=== PATIENT | male | born 1945 | race Caucasian/White ===

== ENCOUNTER → 2017-01-23 | Outpatient (CLI) | payer MEDICARE ==
[~2017-01-23] MED LIST: ALPR1TAB10 PO; AMLO10TA2 PO; ASPI-496 PO; BENA40TA2 PO; DOXY100C2 PO; GADOBUTROL 10 MMOL/10 ML PFS ONE; HYDR25TA6 PO; METO50TA4 PO; PRED20TA PO; SIMV40TA3 PO
== END | disposition home or self-care (01) ==
LOC: CFH 07:52
PROVIDERS: ATTEND Internal Medicine Hematology & Oncology
DX: C34.10 Malignant neoplasm of upper lobe, unspecified bronchus or lung (principal); G31.9 Degenerative disease of nervous system, unspecified
CPT/HCPCS: 70553; A9585

== ENCOUNTER → 2017-01-24 | Outpatient (CLI) | payer MEDICARE ==
[~2017-01-24] MED LIST changes: -GADOBUTROL 10 MMOL/10 ML PFS ONE
== END | disposition home or self-care (01) ==
LOC: PETCFH 12:27
PROVIDERS: ATTEND Internal Medicine Hematology & Oncology
DX: C34.11 Malignant neoplasm of upper lobe, right bronchus or lung (principal); C77.1 Secondary and unspecified malignant neoplasm of intrathoracic lymph nodes
CPT/HCPCS: 78815; A9552

== ENCOUNTER 2017-02-06 08:30 | Day surgery (SDC) | payer MEDICARE ==
[~2017-02-06] VITALS: Ht 185.4 cm; Wt 86.0 kg
[2017-02-06 09:35] VITALS: BP 115/69
[2017-02-06] MEDS ORDERED: LIDOCAINE 1%, 20ML ONE (09:47)
[2017-02-06] MEDS ORDERED: SODIUM CHLORIDE 0.9% 1,000 ML IV SCH (09:49)
[2017-02-06] MEDS ORDERED: CEFAZOLIN PMX 1GM/50ML 50 ML IVPB ONE (10:00)
[2017-02-06] MEDS ORDERED: FENTANYL PF 100 MCG/2ML ONE ×2 (10:15)
[2017-02-06] MEDS ORDERED: MIDAZOLAM 1 MG/ML, 5ML ONE (10:16)
== END 2017-02-06 12:24 | disposition home or self-care (01) ==
LOC: OUT 08:30
PROVIDERS: ATTEND Internal Medicine Hematology & Oncology
DX: C34.11 Malignant neoplasm of upper lobe, right bronchus or lung (principal); J44.9 Chronic obstructive pulmonary disease, unspecified; Z85.118 Personal history of other malignant neoplasm of bronchus and lung; Z90.49 Acquired absence of other specified parts of digestive tract; Z87.442 Personal history of urinary calculi; E78.5 Hyperlipidemia, unspecified; I10 Essential (primary) hypertension; Z95.1 Presence of aortocoronary bypass graft; Z87.891 Personal history of nicotine dependence
CPT/HCPCS: 36561; 76937; 77001; C1788; C1894; J0690; J1642; J2250; J3010; J3490; J7030; 99156; 99157

== ENCOUNTER 2017-03-12 14:00 | Emergency (ER) | payer MEDICARE ==
[~2017-03-12] VITALS: Ht 185.4 cm; Wt 88.0 kg
[2017-03-12] MEDS ORDERED: SODIUM CHLORIDE 0.9% 1,000 ML IV ONE (14:29)
[2017-03-12] MEDS ORDERED: SODIUM CHLORIDE FLUSH 10ML SYR IVF ONE (14:30)
[2017-03-12] MEDS ORDERED: SODIUM CHLORIDE 0.9% 1,000ML IVBOLUS ONE (14:30)
[2017-03-12] MEDS ORDERED: FAMO-79 PO (14:42)
[2017-03-12 17:01] LABS: BLOOD UREA NITROGEN 43 mg/dL (7-18)
[2017-03-12 17:36] VITALS: BP 108/63
== END 2017-03-12 18:01 | disposition home or self-care (01) ==
LOC: ED 17:55
DX: N28.9 Disorder of kidney and ureter, unspecified (principal); C34.90 Malignant neoplasm of unspecified part of unspecified bronchus or lung; Z51.11 Encounter for antineoplastic chemotherapy; I10 Essential (primary) hypertension; J44.9 Chronic obstructive pulmonary disease, unspecified; I11.9 Hypertensive heart disease without heart failure; Z88.0 Allergy status to penicillin; Z90.49 Acquired absence of other specified parts of digestive tract
CPT/HCPCS: 36415; 80048; 96360; 96361; 99285; J7030

== ENCOUNTER 2017-03-25 19:54 | Emergency (ER) | payer MEDICARE ==
[~2017-03-25] VITALS: Ht 180.3 cm; Wt 87.2 kg
[~2017-03-25 19:54] MED LIST changes: +FAMO-79 PO
[2017-03-25] MEDS ORDERED: OXYC1TAB7 PO (20:27)
[2017-03-25] MEDS ORDERED: ACETAMINOPHEN 500 MG TABLET PO ONE (20:30)
[2017-03-25] MEDS ORDERED: SODIUM CHLORIDE FLUSH 10ML SYR IVF ONE (20:30)
[2017-03-25] MEDS ORDERED: ACETAMINOPHEN 500 MG TABLET ONE (20:44)
[2017-03-25 20:47] VITALS: BP 123/61
[2017-03-25 20:56] LABS: ASPARTATE AMINO TRANSFERASE 25 U/L (15-37); BLOOD UREA NITROGEN 54 mg/dL (7-18)
== END 2017-03-25 23:07 | disposition home or self-care (01) ==
LOC: ED 21:26
DX: N28.9 Disorder of kidney and ureter, unspecified (principal); R50.9 Fever, unspecified; D64.9 Anemia, unspecified; J44.9 Chronic obstructive pulmonary disease, unspecified; I10 Essential (primary) hypertension; Z90.49 Acquired absence of other specified parts of digestive tract
CPT/HCPCS: 36415; 71010; 80053; 81003; 83605; 84145; 85025; 85610; 87040; 93005; 99285

== ENCOUNTER → 2017-04-05 | Outpatient (CLI) | payer MEDICARE ==
[~2017-04-05] MED LIST changes: +OXYC1TAB7 PO
== END | disposition home or self-care (01) ==
LOC: ROC 08:00 → EDSTATUS 04-06 08:00
PROVIDERS: ATTEND Radiology Radiation Oncology
DX: C34.11 Malignant neoplasm of upper lobe, right bronchus or lung (principal)
CPT/HCPCS: G0463

== ENCOUNTER → 2017-04-05 | Outpatient (CLI) | payer MEDICARE | END | disposition home or self-care (01) | LOC: CFH 09:16 | PROVIDERS: ATTEND Radiology Radiation Oncology | DX: C34.11 Malignant neoplasm of upper lobe, right bronchus or lung (principal); I10 Essential (primary) hypertension; E11.9 Type 2 diabetes mellitus without complications; Z98.890 Other specified postprocedural states | CPT/HCPCS: 71020 ==

== ENCOUNTER → 2017-04-13 | Outpatient (CLI) | payer MEDICARE | END | disposition home or self-care (01) | LOC: ROC 07:51 | PROVIDERS: ATTEND Radiology Radiation Oncology | DX: Z08 Encounter for follow-up examination after completed treatment for malignant neoplasm (principal); C34.11 Malignant neoplasm of upper lobe, right bronchus or lung | CPT/HCPCS: G0463 ==

== ENCOUNTER → 2017-05-03 | Outpatient (CLI) | payer MEDICARE | END | disposition home or self-care (01) | LOC: ROC 08:54 | PROVIDERS: ATTEND Radiology Radiation Oncology | DX: C34.11 Malignant neoplasm of upper lobe, right bronchus or lung (principal) | CPT/HCPCS: G0463 ==

== ENCOUNTER → 2017-05-07 | Outpatient (CLI) | payer MEDICARE | END | disposition home or self-care (01) | LOC: PETCFH 08:42 | PROVIDERS: ATTEND Internal Medicine Hematology & Oncology | DX: C34.10 Malignant neoplasm of upper lobe, unspecified bronchus or lung (principal); R91.1 Solitary pulmonary nodule; R59.0 Localized enlarged lymph nodes | CPT/HCPCS: 78815; A9552 ==

== ENCOUNTER → 2017-07-16 | Outpatient (CLI) | payer MEDICARE ==
[~2017-07-16] MED LIST changes: +GADOBUTROL 7.5 MMOL/7.5 ML PFS ONE
== END | disposition home or self-care (01) ==
LOC: RAD 14:20
PROVIDERS: ATTEND Internal Medicine Hematology & Oncology
DX: R90.82 White matter disease, unspecified (principal); G31.9 Degenerative disease of nervous system, unspecified; C34.10 Malignant neoplasm of upper lobe, unspecified bronchus or lung; J98.11 Atelectasis; I70.0 Atherosclerosis of aorta; N28.1 Cyst of kidney, acquired; K76.89 Other specified diseases of liver; M51.04 Intervertebral disc disorders with myelopathy, thoracic region; M43.8X4 Other specified deforming dorsopathies, thoracic region; M51.37 Other intervertebral disc degeneration, lumbosacral region; E11.9 Type 2 diabetes mellitus without complications; T50.8X1A Poisoning by diagnostic agents, accidental (unintentional), initial encounter; Z95.1 Presence of aortocoronary bypass graft
CPT/HCPCS: 36415; 70553; 71260; 74177; 82565; A9585

== ENCOUNTER → 2017-10-09 | Outpatient (CLI) | payer MEDICARE ==
[~2017-10-09] MED LIST changes: -GADOBUTROL 7.5 MMOL/7.5 ML PFS ONE; +OMNIPAQUE 350 MG/ML, 75ML BOTTLE ONE
== END | disposition home or self-care (01) ==
LOC: CFH 11:41
PROVIDERS: ATTEND Internal Medicine Hematology & Oncology
DX: J43.9 Emphysema, unspecified (principal); Z95.1 Presence of aortocoronary bypass graft; C34.10 Malignant neoplasm of upper lobe, unspecified bronchus or lung
CPT/HCPCS: 71260; Q9967

== ENCOUNTER 2017-10-16 21:57 | Inpatient (IN) | payer MEDICARE ==
[~2017-10-16] VITALS: Ht 185.4 cm; Wt 92.6 kg
[~2017-10-16 21:57] MED LIST changes: -OMNIPAQUE 350 MG/ML, 75ML BOTTLE ONE
[2017-10-16] MEDS ORDERED: ASPIRIN 81 MG TABLET CHEW PO ONE (22:30)
[2017-10-16 22:31] LABS: BASOPHILS # (AUTO) 0.02 x10^3/uL (0-0.1); BASOPHILS % (AUTO) 0 % (0-1); EOSINOPHILS # (AUTO) 0.08 x10^3/uL (0-0.4); EOSINOPHILS % (AUTO) 1 % (1-7); LYMPHOCYTES # (AUTO) 0.38 x10^3/uL (1-3.4); LYMPHOCYTES % (AUTO) 2 % (22-44); MD NO; MEAN CORPUSCULAR HEMOGLOBIN 32.6 pg (27.5-34.5); MEAN CORPUSCULAR HGB CONC 33.2 g/dL (33.2-36.2); MEAN CORPUSCULAR VOLUME 98.3 fL (81-97); MEAN PLATELET VOLUME 7.4 fL (7.4-10.4); MONOCYTES # (AUTO) 0.81 x10^3/uL (0.2-0.8); MONOCYTES % (AUTO) 5 % (2-9); NEUTROPHILS # (AUTO) 14.99 x10^3/uL (1.8-6.8); NEUTROPHILS % (AUTO) 92 % (42-75); PLATELET COUNT 285 x10^3/uL (130-400)
[2017-10-16 22:33] LABS: ALANINE AMINOTRANSFERASE 25 U/L (12-78); ALBUMIN 3.6 g/dL (3.4-5.0); ANION GAP 9 mmol/L (5-15); CALCIUM 8.5 mg/dL (8.5-10.1); CHLORIDE 106 mmol/L (98-107)
[2017-10-16 22:38] LABS: ALKALINE PHOSPHATASE 72 U/L (45-117); BILIRUBIN,TOTAL 0.5 mg/dL (0.2-1.0); TOTAL PROTEIN 7.1 g/dL (6.4-8.2); TROPONIN I < 0.015 ng/mL (0.000-0.045)
[2017-10-16] MEDS ORDERED: CEFTRIAXONE PMX 1GM/50ML 50 ML IV ONE (23:30)
[2017-10-16] MEDS ORDERED: AZITHROMYCIN 500 MG in SODIUM CHLORIDE 0.9% 250 ML IV ONE (23:30)
[2017-10-16] MEDS ORDERED: CEFTRIAXONE PMX 1GM/50ML 50 ML ONE (23:33)
[2017-10-17] MEDS ORDERED: SODIUM CHLORIDE 0.9% 1,000ML IVBOLUS ONE
[2017-10-17] MEDS ORDERED: SODIUM CHLORIDE 0.9% 1,000 ML IV ONE (00:05)
[2017-10-17] MEDS ORDERED: ONDANSETRON 2MG/ML, 2ML IVPush PRN ×2 (00:30→02:30)
[2017-10-17] MEDS ORDERED: MORPHINE SULFATE 4 MG/ML, 1ML IVPush PRN (00:30)
[2017-10-17] MEDS: SODIUM CHLORIDE 0.9% 1,000 ML IV SCH ×3 (02:28→21:28)
[2017-10-17] MEDS: AZITHROMYCIN 500 MG in SODIUM CHLORIDE 0.9% 250 ML IV SCH (02:30)
[2017-10-17] MEDS: CEFTRIAXONE PMX 1GM/50ML 50 ML IV SCH (02:30)
[2017-10-17] MEDS ORDERED: GUAIFENESIN/DM 200-20MG, 10ML UDC PO PRN (02:30)
[2017-10-17] MEDS ORDERED: ACETAMINOPHEN 325 MG TABLET PO PRN (02:30)
[2017-10-17] MEDS: OXYcodone/APAP 5/325MG TABLET PO SCH ×6 (02:30→22:30)
[2017-10-17] MEDS ORDERED: morphine SULFATE 10 MG/ML, 1ML IVPush PRN (02:30)
[2017-10-17 03:20] VITALS: BP 99/57
[2017-10-17] MEDS: ENOXAPARIN 40 MG/0.4 ML SQ SCH (03:47)
[2017-10-17 05:34] LABS: MEAN CORPUSCULAR HEMOGLOBIN 32.7 pg (27.5-34.5); MEAN CORPUSCULAR HGB CONC 32.8 g/dL (33.2-36.2); MEAN CORPUSCULAR VOLUME 99.7 fL (81-97); MEAN PLATELET VOLUME 7.6 fL (7.4-10.4); PLATELET COUNT 237 x10^3/uL (130-400); RED BLOOD COUNT 3.87 x10^6/uL (4.38-5.82); RED CELL DISTRIBUTION WIDTH 16.9 % (9.4-14.8)
[2017-10-17 05:52] LABS: ANION GAP 9 mmol/L (5-15); CHLORIDE 107 mmol/L (98-107); TROPONIN I < 0.015 ng/mL (0.000-0.045)
[2017-10-17 05:54] LABS: CALCIUM 7.6 mg/dL (8.5-10.1); CREATININE 1.48 mg/dL (0.7-1.3)
[2017-10-17 06:28] LABS: BASOPHILS % (AUTO) 0 % (0-1); EOSINOPHILS # (AUTO) 0.01 x10^3/uL (0-0.4); EOSINOPHILS % (AUTO) 0 % (1-7); LYMPHOCYTES # (AUTO) 0.78 x10^3/uL (1-3.4); LYMPHOCYTES % (AUTO) 4 % (22-44); MD SCAN; MONOCYTES # (AUTO) 1.31 x10^3/uL (0.2-0.8); MONOCYTES % (AUTO) 7 % (2-9); NEUTROPHILS # (AUTO) 17.29 x10^3/uL (1.8-6.8); NEUTROPHILS % (AUTO) 89 % (42-75)
[2017-10-17 09:00] VITALS: BP 131/84
[2017-10-17 12:03] LABS: TROPONIN I < 0.015 ng/mL (0.000-0.045)
[2017-10-17 14:08] VITALS: BP 129/67
[2017-10-17 17:55] LABS: RAPID INFLUENZA A Negative (Negative); RAPID INFLUENZA B Negative (Negative)
[2017-10-17 19:42] VITALS: BP 119/67
[2017-10-17] MEDS ORDERED: SIMVASTATIN 40 MG TABLET PO SCH (21:00)
[2017-10-18 01:53] VITALS: BP 121/68
[2017-10-18] MEDS: OXYcodone/APAP 5/325MG TABLET PO SCH ×4 (02:30→10:52)
[2017-10-18] MEDS: AZITHROMYCIN 500 MG in SODIUM CHLORIDE 0.9% 250 ML IV SCH ×2 (02:30→03:55)
[2017-10-18] MEDS: CEFTRIAXONE PMX 1GM/50ML 50 ML IV SCH (03:05)
[2017-10-18] MEDS: ENOXAPARIN 40 MG/0.4 ML SQ SCH (03:56)
[2017-10-18 05:22] LABS: ALBUMIN 2.6 g/dL (3.4-5.0); ANION GAP 7 mmol/L (5-15); CALCIUM 7.7 mg/dL (8.5-10.1); CHLORIDE 109 mmol/L (98-107); CREATININE 1.04 mg/dL (0.7-1.3)
[2017-10-18 05:23] LABS: BASOPHILS # (AUTO) 0.02 x10^3/uL (0-0.1); BASOPHILS % (AUTO) 0 % (0-1); EOSINOPHILS # (AUTO) 0.22 x10^3/uL (0-0.4); EOSINOPHILS % (AUTO) 3 % (1-7); LYMPHOCYTES # (AUTO) 1.13 x10^3/uL (1-3.4); LYMPHOCYTES % (AUTO) 13 % (22-44); MD NO; MEAN CORPUSCULAR HEMOGLOBIN 33.2 pg (27.5-34.5); MEAN CORPUSCULAR HGB CONC 33.4 g/dL (33.2-36.2); MEAN CORPUSCULAR VOLUME 99.4 fL (81-97); MEAN PLATELET VOLUME 7.7 fL (7.4-10.4); MONOCYTES # (AUTO) 0.84 x10^3/uL (0.2-0.8); MONOCYTES % (AUTO) 10 % (2-9); NEUTROPHILS # (AUTO) 6.31 x10^3/uL (1.8-6.8); NEUTROPHILS % (AUTO) 74 % (42-75); PLATELET COUNT 207 x10^3/uL (130-400); RED BLOOD COUNT 3.56 x10^6/uL (4.38-5.82); RED CELL DISTRIBUTION WIDTH 16.8 % (9.4-14.8)
[2017-10-18 07:25] VITALS: BP 139/71
[2017-10-18 13:00] VITALS: BP 117/68
[2017-10-18] MEDS ORDERED: AZIT250T89 PO (13:51)
[2017-10-18] MEDS ORDERED: CEFD300C37 PO (13:51)
[2017-10-18] MEDS: SODIUM CHLORIDE 0.9% 1,000 ML IV SCH (14:11)
== END 2017-10-18 15:23 | disposition home or self-care (01) | DRG 871 ==
LOC: ED 23:26 → EDIP 10-17 00:21 → 4NOR 10-17 03:10 → DCLOUNGE 10-18 14:54
PROVIDERS: ADMIT Hospitalist; ATTEND Hospitalist
DX: A41.9 Sepsis, unspecified organism (principal); J96.21 Acute and chronic respiratory failure with hypoxia; J18.1 Lobar pneumonia, unspecified organism; N17.9 Acute kidney failure, unspecified; E44.1 Mild protein-calorie malnutrition; J44.0 Chronic obstructive pulmonary disease with (acute) lower respiratory infection; Z99.81 Dependence on supplemental oxygen; E78.5 Hyperlipidemia, unspecified; F41.9 Anxiety disorder, unspecified; R07.89 Other chest pain; N18.9 Chronic kidney disease, unspecified; I12.9 Hypertensive chronic kidney disease with stage 1 through stage 4 chronic kidney disease, or unspecified chronic kidney disease; Z82.49 Family history of ischemic heart disease and other diseases of the circulatory system; Z87.442 Personal history of urinary calculi; Z87.891 Personal history of nicotine dependence; Z88.0 Allergy status to penicillin; Z90.2 Acquired absence of lung [part of]; Z92.21 Personal history of antineoplastic chemotherapy; Z85.118 Personal history of other malignant neoplasm of bronchus and lung; Z92.3 Personal history of irradiation; Z95.1 Presence of aortocoronary bypass graft; Z90.49 Acquired absence of other specified parts of digestive tract; Z68.26 Body mass index [BMI] 26.0-26.9, adult
CPT/HCPCS: 36415; 71010; 80048; 80053; 82040; 83605; 83735; 84100; 84145; 84484; 85025; 87040; 87400; 93005; 96365; J0456; J0696; J1650; J7030; J7050

== ENCOUNTER 2017-11-14 11:01 | Day surgery (SDC) | payer MEDICARE ==
[~2017-11-14] VITALS: Ht 185.4 cm; Wt 91.4 kg
[~2017-11-14 11:01] MED LIST changes: +AZIT250T89 PO; +CEFD300C37 PO
[2017-11-14 11:51] VITALS: BP 149/76
[2017-11-14] MEDS ORDERED: FENTANYL PF 100 MCG/2ML ONE (12:38)
[2017-11-14] MEDS ORDERED: FLUMAZENIL 0.1 MG/1 ML, 5ML ONE (12:39)
[2017-11-14] MEDS ORDERED: NALOXONE 1 MG/ML, 2ML ONE (12:39)
[2017-11-14] MEDS ORDERED: MIDAZOLAM 1 MG/ML, 2ML ONE ×2 (12:39)
[2017-11-14] MEDS ORDERED: LIDOCAINE 1%, 10ML ONE (12:40)
== END 2017-11-14 14:30 | disposition home or self-care (01) ==
LOC: OUT 11:01
PROVIDERS: ATTEND Internal Medicine Hematology & Oncology
DX: Z45.2 Encounter for adjustment and management of vascular access device (principal); C34.90 Malignant neoplasm of unspecified part of unspecified bronchus or lung; J44.9 Chronic obstructive pulmonary disease, unspecified; I12.9 Hypertensive chronic kidney disease with stage 1 through stage 4 chronic kidney disease, or unspecified chronic kidney disease; N18.9 Chronic kidney disease, unspecified; E78.5 Hyperlipidemia, unspecified; F41.9 Anxiety disorder, unspecified; Z88.0 Allergy status to penicillin
CPT/HCPCS: 36590; 77001; 99156; 99157; J2250; J3010; J3490; J2310

== ENCOUNTER → 2017-11-16 | Outpatient (CLI) | payer MEDICARE | END | disposition home or self-care (01) | LOC: ROC 10:02 | PROVIDERS: ATTEND Radiology Radiation Oncology | DX: C34.11 Malignant neoplasm of upper lobe, right bronchus or lung (principal); I50.9 Heart failure, unspecified | CPT/HCPCS: G0463 ==

== ENCOUNTER → 2018-02-22 | Outpatient (CLI) | payer MEDICARE ==
[~2018-02-22] MED LIST changes: +AZIT500T5 PO; +FLUT1BLS INH; +IPRA3AMP NPPB; +POLY17PO5 PO; +PRED5TAB PO
== END | disposition home or self-care (01) ==
LOC: ROC 11:45
PROVIDERS: ATTEND Radiology Radiation Oncology
DX: C34.11 Malignant neoplasm of upper lobe, right bronchus or lung (principal)
CPT/HCPCS: G0463

== ENCOUNTER → 2018-02-22 | Outpatient (CLI) | payer MEDICARE | LOC: ROC 07:36 | PROVIDERS: ATTEND Radiology Radiation Oncology | DX: Z02.9 Encounter for administrative examinations, unspecified (principal) ==

== ENCOUNTER → 2018-04-24 | Outpatient (CLI) | payer MEDICARE | END | disposition home or self-care (01) | LOC: CFH 10:53 | PROVIDERS: ATTEND Radiology Radiation Oncology | DX: R91.1 Solitary pulmonary nodule (principal); I70.0 Atherosclerosis of aorta; I25.10 Atherosclerotic heart disease of native coronary artery without angina pectoris | CPT/HCPCS: 71250 ==

== ENCOUNTER → 2018-04-26 | Outpatient (CLI) | payer MEDICARE | END | disposition home or self-care (01) | LOC: ROC 08:00 | PROVIDERS: ATTEND Radiology Radiation Oncology | DX: C34.11 Malignant neoplasm of upper lobe, right bronchus or lung (principal) | CPT/HCPCS: G0463 ==

== ENCOUNTER 2018-05-17 10:17 | Emergency (ER) | payer MEDICARE ==
[~2018-05-17] VITALS: Ht 185.4 cm; Wt 86.3 kg
[2018-05-17] MEDS ORDERED: SODIUM CHLORIDE 0.9% 1,000 ML IV ONE (10:44)
[2018-05-17] MEDS ORDERED: SODIUM CHLORIDE FLUSH 10ML SYR IVF ONE (11:00)
[2018-05-17 11:09] LABS: BASOPHILS # (AUTO) 0.03 x10^3/uL (0-0.1); BASOPHILS % (AUTO) 0 % (0-1); EOSINOPHILS % (AUTO) 3 % (1-7); LYMPHOCYTES # (AUTO) 1.35 x10^3/uL (1-3.4); LYMPHOCYTES % (AUTO) 12 % (22-44); MD NO; MEAN CORPUSCULAR HEMOGLOBIN 31.6 pg (27.5-34.5); MEAN CORPUSCULAR HGB CONC 32.8 g/dL (33.2-36.2); MEAN CORPUSCULAR VOLUME 96.5 fL (81-97); MEAN PLATELET VOLUME 7.6 fL (7.4-10.4); MONOCYTES # (AUTO) 1.03 x10^3/uL (0.2-0.8); MONOCYTES % (AUTO) 9 % (2-9); NEUTROPHILS % (AUTO) 75 % (42-75); PLATELET COUNT 362 x10^3/uL (130-400); RED BLOOD COUNT 4.06 x10^6/uL (4.38-5.82); RED CELL DISTRIBUTION WIDTH 15.4 % (9.4-14.8)
[2018-05-17 11:20] LABS: ALANINE AMINOTRANSFERASE 20 U/L (12-78); ALBUMIN 4.1 g/dL (3.4-5.0); ANION GAP 8 mmol/L (5-15); CALCIUM 9.1 mg/dL (8.5-10.1); CHLORIDE 105 mmol/L (98-107); CREATININE 2.12 mg/dL (0.7-1.3)
[2018-05-17 11:22] LABS: ALKALINE PHOSPHATASE 135 U/L (45-117); BILIRUBIN,TOTAL 0.8 mg/dL (0.2-1.0); TOTAL PROTEIN 8.3 g/dL (6.4-8.2)
[2018-05-17 14:55] VITALS: BP 122/57
== END 2018-05-17 14:58 | disposition home or self-care (01) ==
LOC: ED 11:52
DX: C34.92 Malignant neoplasm of unspecified part of left bronchus or lung (principal); R04.2 Hemoptysis; E78.00 Pure hypercholesterolemia, unspecified; I25.2 Old myocardial infarction; J44.9 Chronic obstructive pulmonary disease, unspecified; Z88.0 Allergy status to penicillin; Z87.891 Personal history of nicotine dependence; Z79.899 Other long term (current) drug therapy
CPT/HCPCS: 36415; 71046; 71250; 80053; 85025; 93005; 99285; J7030

== ENCOUNTER → 2018-06-05 | Outpatient (CLI) | payer MEDICARE ==
[~2018-06-05] MED LIST changes: -BENA40TA2 PO; +BENA40TA3 PO; -IPRA3AMP NPPB; +IPRA3AMP30 NPPB
== END | disposition home or self-care (01) ==
LOC: RAD 12:39
PROVIDERS: ATTEND Internal Medicine Nephrology
DX: N28.1 Cyst of kidney, acquired (principal); I12.9 Hypertensive chronic kidney disease with stage 1 through stage 4 chronic kidney disease, or unspecified chronic kidney disease; N18.3 Chronic kidney disease, stage 3 (moderate); J44.9 Chronic obstructive pulmonary disease, unspecified; Z79.899 Other long term (current) drug therapy
CPT/HCPCS: 76770

== ENCOUNTER → 2018-06-19 | Outpatient (CLI) | payer MEDICARE ==
[~2018-06-19] MED LIST changes: +ASPI-621 PO; +CHOL20002 PO; +DOXE6TAB3 PO; +FURO20TA3 PO; +TRAM50TA2 PO
== END | disposition home or self-care (01) ==
LOC: PETCFH 12:02
PROVIDERS: ATTEND Internal Medicine Hematology & Oncology
DX: C34.10 Malignant neoplasm of upper lobe, unspecified bronchus or lung (principal); Z95.1 Presence of aortocoronary bypass graft; R91.1 Solitary pulmonary nodule
CPT/HCPCS: 78815; A9552

== ENCOUNTER 2018-06-20 06:45 | Day surgery (SDC) | payer MEDICARE ==
[2018-06-18 11:19] LABS: BASOPHILS # (AUTO) 0.03 x10^3/uL (0-0.1); BASOPHILS % (AUTO) 0 % (0-1); EOSINOPHILS # (AUTO) 0.21 x10^3/uL (0-0.4); EOSINOPHILS % (AUTO) 3 % (1-7); LYMPHOCYTES # (AUTO) 1.19 x10^3/uL (1-3.4); LYMPHOCYTES % (AUTO) 14 % (22-44); MD NO; MEAN CORPUSCULAR HEMOGLOBIN 31.6 pg (27.5-34.5); MEAN CORPUSCULAR HGB CONC 32.9 g/dL (33.2-36.2); MEAN CORPUSCULAR VOLUME 96.1 fL (81-97); MEAN PLATELET VOLUME 7.5 fL (7.4-10.4); MONOCYTES # (AUTO) 0.71 x10^3/uL (0.2-0.8); MONOCYTES % (AUTO) 9 % (2-9); NEUTROPHILS # (AUTO) 6.15 x10^3/uL (1.8-6.8); NEUTROPHILS % (AUTO) 74 % (42-75); PLATELET COUNT 358 x10^3/uL (130-400); RED BLOOD COUNT 3.99 x10^6/uL (4.38-5.82); RED CELL DISTRIBUTION WIDTH 17.6 % (9.4-14.8)
[2018-06-18 11:25] LABS: INTERNATIONAL NORMALIZED RATIO 1.04 (0.93-1.1); PROTHROMBIN TIME 10.7 Seconds (9.6-11.5)
[~2018-06-20] VITALS: Ht 185.4 cm; Wt 82.6 kg
[~2018-06-20 06:45] MED LIST changes: -AMLO10TA2 PO; +AMLO10TA6 PO; -CHOL20002 PO; +CHOL200052 PO
[2018-06-20] MEDS ORDERED: SODIUM CHLORIDE 0.9% 1,000 ML IV SCH (07:27)
[2018-06-20 07:57] VITALS: BP 111/64
[2018-06-20] MEDS ORDERED: FENTANYL PF 100 MCG/2ML ONE (08:17)
[2018-06-20] MEDS ORDERED: MIDAZOLAM 1 MG/ML, 5ML ONE (08:17)
[2018-06-20] MEDS ORDERED: BENZOCAINE 20% SPRAY 0.5ML ONE (10:30)
[2018-06-20] MEDS ORDERED: LIDOCAINE 2%, 20ML ONE (10:30)
[2018-06-20] MEDS ORDERED: LIDOCAINE GEL 2%, 5ML ONE (10:30)
[2018-06-20] MEDS ORDERED: LIDOCAINE 4% TOPICAL SOLUTION 50 ML ONE (10:30)
== END 2018-06-20 12:08 | disposition home or self-care (01) ==
LOC: OUT 06:45
PROVIDERS: ATTEND Internal Medicine Critical Care Medicine
DX: R04.2 Hemoptysis (principal); R91.8 Other nonspecific abnormal finding of lung field; F41.9 Anxiety disorder, unspecified; J44.9 Chronic obstructive pulmonary disease, unspecified; I12.9 Hypertensive chronic kidney disease with stage 1 through stage 4 chronic kidney disease, or unspecified chronic kidney disease; N18.9 Chronic kidney disease, unspecified; E78.5 Hyperlipidemia, unspecified; Z87.01 Personal history of pneumonia (recurrent); Z85.118 Personal history of other malignant neoplasm of bronchus and lung; Z90.49 Acquired absence of other specified parts of digestive tract; Z88.8 Allergy status to other drugs, medicaments and biological substances; Z95.1 Presence of aortocoronary bypass graft; Z79.82 Long term (current) use of aspirin; Z79.899 Other long term (current) drug therapy
CPT/HCPCS: 31622; 36415; 82962; 85025; 85610; 85730; 99152; 99153; J2250; J3010; J3490; J7030

== ENCOUNTER → 2018-08-01 | Outpatient (CLI) | payer MEDICARE | END | disposition home or self-care (01) | LOC: ROC 07:34 | PROVIDERS: ATTEND Radiology Radiation Oncology | DX: Z02.9 Encounter for administrative examinations, unspecified (principal) ==

== ENCOUNTER → 2018-09-11 | Outpatient (CLI) | payer MEDICARE | END | disposition home or self-care (01) | LOC: CFH 10:11 | PROVIDERS: ATTEND Radiology Radiation Oncology | DX: R91.1 Solitary pulmonary nodule (principal); C34.11 Malignant neoplasm of upper lobe, right bronchus or lung | CPT/HCPCS: 71250 ==

== ENCOUNTER → 2018-09-12 | Outpatient (CLI) | payer MEDICARE | END | disposition home or self-care (01) | LOC: ROC 08:39 | PROVIDERS: ATTEND Radiology Radiation Oncology | DX: Z08 Encounter for follow-up examination after completed treatment for malignant neoplasm (principal); C34.11 Malignant neoplasm of upper lobe, right bronchus or lung; Z88.0 Allergy status to penicillin | CPT/HCPCS: G0463 ==

== ENCOUNTER → 2018-12-27 | Outpatient (CLI) | payer MEDICARE ==
[~2018-12-27] MED LIST changes: -AMLO10TA6 PO; +AMLO10TA8 PO; -ASPI-621 PO; +ASPI81TA45 PO
== END | disposition home or self-care (01) ==
LOC: CFH 11:05
PROVIDERS: ATTEND Internal Medicine Hematology & Oncology
DX: C34.10 Malignant neoplasm of upper lobe, unspecified bronchus or lung (principal); J98.4 Other disorders of lung
CPT/HCPCS: 71250

== ENCOUNTER 2019-03-25 09:31 | Day surgery (SDC) | payer MEDICARE ==
[~2019-03-25] VITALS: Ht 175.3 cm; Wt 92.9 kg
[2019-03-25] MEDS ORDERED: LACTATED RINGERS 1,000 ML IV SCH (11:03)
[2019-03-25] MEDS ORDERED: ASCO10004 PO (11:06)
[2019-03-25 11:08] VITALS: BP 143/72
[2019-03-25] MEDS ORDERED: PROPOFOL 10 MG/ML, 20ML ONE (12:47)
[2019-03-25] MEDS ORDERED: ACETAMINOPHEN 325 MG TABLET PO PRN (13:00)
[2019-03-25] MEDS ORDERED: FENTANYL PF 100 MCG/2ML IV PRN (13:00)
[2019-03-25] MEDS ORDERED: ONDANSETRON 2MG/ML, 2ML IV PRN (13:00)
== END 2019-03-25 15:00 | disposition home or self-care (01) ==
LOC: OUT 09:31
PROVIDERS: ATTEND Internal Medicine
DX: K29.50 Unspecified chronic gastritis without bleeding (principal); K21.0 Gastro-esophageal reflux disease with esophagitis; K63.89 Other specified diseases of intestine; K44.9 Diaphragmatic hernia without obstruction or gangrene; K29.00 Acute gastritis without bleeding; E78.5 Hyperlipidemia, unspecified; J44.9 Chronic obstructive pulmonary disease, unspecified; I11.0 Hypertensive heart disease with heart failure; I50.9 Heart failure, unspecified; Z86.010 Personal history of colon polyps; Z95.1 Presence of aortocoronary bypass graft
CPT/HCPCS: 43239; 45378; 88305; 93005; J2704; J7120

== ENCOUNTER → 2019-05-09 | Outpatient (CLI) | payer MEDICARE ==
[~2019-05-09] MED LIST changes: +ASCO10004 PO
== END | disposition home or self-care (01) ==
LOC: ROC 07:53
PROVIDERS: ATTEND Radiology Radiation Oncology
DX: Z08 Encounter for follow-up examination after completed treatment for malignant neoplasm (principal); Z85.118 Personal history of other malignant neoplasm of bronchus and lung; R91.1 Solitary pulmonary nodule; J98.4 Other disorders of lung; Z88.0 Allergy status to penicillin
CPT/HCPCS: G0463

== ENCOUNTER 2019-06-23 07:11 | Outpatient (CLI) | payer MEDICARE | END 2019-06-23 23:59 | disposition home or self-care (01) | LOC: CFH 07:11 | PROVIDERS: ATTEND Internal Medicine Cardiovascular Disease | DX: I25.10 Atherosclerotic heart disease of native coronary artery without angina pectoris (principal); R07.89 Other chest pain | CPT/HCPCS: 78452; 93017; A9502; J2785 ==

== ENCOUNTER → 2020-04-08 | Outpatient (CLI) | payer MEDICARE ==
[~2020-04-08] MED LIST changes: +AZIT500T10 PO; -AZIT500T5 PO; +SIMV40TA20 PO; -SIMV40TA3 PO
== END | disposition home or self-care (01) ==
LOC: PETCFH 08:14
PROVIDERS: ATTEND Internal Medicine Hematology & Oncology
DX: C34.10 Malignant neoplasm of upper lobe, unspecified bronchus or lung (principal); I70.8 Atherosclerosis of other arteries; J98.4 Other disorders of lung; R91.1 Solitary pulmonary nodule; Z95.1 Presence of aortocoronary bypass graft
CPT/HCPCS: 78815; A9552

== ENCOUNTER 2020-05-03 17:19 | Emergency (ER) | payer MEDICARE ==
[~2020-05-03] VITALS: Ht 182.9 cm; Wt 84.1 kg
[~2020-05-03 17:19] MED LIST changes: +ASCO100018 PO; -ASCO10004 PO
--- NOTE | 2020-05-03 17:58 | NUR ---
FIRST CONTACT WITH PT. PT HAS HERNIA, C/O LEFT GROIN PAIN SEEN BY CHARAN ON SUNDAY, PAIN WORSE TODAY. PT DENIES ANY OTHER SX. PT'S AOX4. RESPS EVEN AND UNLABORED. BP/SPO2 MONITORS IN PLACE. CALL LIGHT WITHIN REACH.
--- NOTE | 2020-05-03 18:15 | NUR ---
EDMD AT BEDSIDE TO EVALUATE AT THIS TIME.
--- NOTE | 2020-05-03 18:23 | NUR ---
PT IN IMAGING AT THIS TIME.
[2020-05-03] MEDS ORDERED: HYDROmorphone 1 MG/ML, 1ML INJ IM ONE (18:30)
--- NOTE | 2020-05-03 18:37 | NUR ---
PT BACK TO ROOM FROM IMAGING AT THIS TIME. LAB AT BEDSIDE.
--- NOTE | 2020-05-03 18:44 | NUR ---
BLADDER SCAN SHOWS 530ML URINE. EDMD NOTIFIED AND CASTILLO CATH BY VERVAL ORDER AT THIS TIME.
--- NOTE | 2020-05-03 18:45 | NUR ---
US AT BEDSIDE AT THIS TIME.
--- NOTE | 2020-05-03 18:51 | NUR ---
REPORT GIVEN TO SAHRA ASHTON.
--- NOTE | 2020-05-03 18:51 | NUR ---
Report received from POLI León. This RN to assume care. US at bedside. Meds to be given; zamora to be established.
[2020-05-03] MEDS ORDERED: HYDROmorphone 1 MG/ML, 1ML INJ ONE (18:53)
[2020-05-03 18:57] LABS: BASOPHILS # (AUTO) 0.04 x10^3/uL (0-0.1); BASOPHILS % (AUTO) 1 % (0-1); EOSINOPHILS # (AUTO) 0.17 x10^3/uL (0-0.4); EOSINOPHILS % (AUTO) 2 % (1-7); LYMPHOCYTES # (AUTO) 1.09 x10^3/uL (1-3.4); LYMPHOCYTES % (AUTO) 16 % (22-44); MD NO; MEAN CORPUSCULAR HEMOGLOBIN 33.6 pg (27.5-34.5); MEAN CORPUSCULAR HGB CONC 31.9 g/dL (33.2-36.2); MEAN PLATELET VOLUME 7.6 fL (7.4-10.4); MONOCYTES # (AUTO) 0.54 x10^3/uL (0.2-0.8); MONOCYTES % (AUTO) 8 % (2-9); NEUTROPHILS # (AUTO) 5.16 x10^3/uL (1.8-6.8); NEUTROPHILS % (AUTO) 74 % (42-75); PLATELET COUNT 356 x10^3/uL (130-400); RED BLOOD COUNT 3.63 x10^6/uL (4.38-5.82); RED CELL DISTRIBUTION WIDTH 14.4 % (9.4-14.8)
[2020-05-03 18:59] LABS: ALANINE AMINOTRANSFERASE 20 U/L (12-78); ALBUMIN 4.1 g/dL (3.4-5.0); ANION GAP 5 mmol/L (5-15); CALCIUM 8.8 mg/dL (8.5-10.1); CHLORIDE 107 mmol/L (98-107); CREATININE 2.05 mg/dL (0.7-1.3)
[2020-05-03 19:01] LABS: ALKALINE PHOSPHATASE 86 U/L (45-117); BILIRUBIN,TOTAL 0.5 mg/dL (0.2-1.0); TOTAL PROTEIN 7.9 g/dL (6.4-8.2)
--- NOTE | 2020-05-03 19:45 | NUR ---
Villarreal catheter established with no incidents.
--- NOTE | 2020-05-03 20:31 | NUR ---
Patient in CT.
[2020-05-03 20:47] LABS: MICROSCOPIC NOT IND
[2020-05-03 22:44] VITALS: BP 143/64
--- NOTE | 2020-05-03 22:45 | NUR ---
Discharge instructions given. All questions and concerns addressed. Patient wheeled out in wheelchair. Belongings with patient.
== END 2020-05-03 22:46 | disposition home or self-care (01) ==
LOC: ED 17:49
DX: R33.8 Other retention of urine (principal); I10 Essential (primary) hypertension; I25.2 Old myocardial infarction; J44.9 Chronic obstructive pulmonary disease, unspecified; Z90.49 Acquired absence of other specified parts of digestive tract; Z95.1 Presence of aortocoronary bypass graft; Z85.118 Personal history of other malignant neoplasm of bronchus and lung
CPT/HCPCS: 36415; 51702; 74021; 74176; 76770; 80053; 81003; 83605; 85025; 96372; 99285; J1170

== ENCOUNTER → 2020-06-30 | Outpatient (CLI) | payer MEDICARE ==
[~2020-06-30] MED LIST changes: -ASCO100018 PO; +ASCO10004 PO
== END | disposition home or self-care (01) ==
LOC: EDSTATUS 04-06 13:15 → CFH 10:24
PROVIDERS: ATTEND Internal Medicine Hematology & Oncology
DX: C34.10 Malignant neoplasm of upper lobe, unspecified bronchus or lung (principal); M48.54XA Collapsed vertebra, not elsewhere classified, thoracic region, initial encounter for fracture; J98.4 Other disorders of lung; J98.11 Atelectasis
CPT/HCPCS: 71250

== ENCOUNTER 2020-07-21 06:16 | Day surgery (SDC) | payer MEDICARE ==
[~2020-07-21] VITALS: Ht 182.9 cm; Wt 80.0 kg
[~2020-07-21 06:16] MED LIST changes: +ASCO100018 PO; -ASCO10004 PO
[2020-07-21 06:56] VITALS: BP 130/73
[2020-07-21] MEDS ORDERED: SODIUM CHLORIDE 0.9% 1,000 ML IV SCH (06:56)
[2020-07-21] MEDS ORDERED: GADOTERATE 10 MMOL/20 ML SYR ONE (08:07)
[2020-07-21] MEDS ORDERED: FLUMAZENIL 0.1 MG/1 ML, 5ML ONE (08:42)
[2020-07-21] MEDS ORDERED: FENTANYL PF 100 MCG/2ML ONE (08:42)
[2020-07-21] MEDS ORDERED: NALOXONE 1 MG/ML, 2ML ONE (08:42)
[2020-07-21] MEDS ORDERED: MIDAZOLAM 1 MG/ML, 5ML ONE (08:42)
[2020-07-21] MEDS ORDERED: LIDOCAINE 1%, 10ML ONE (09:18)
[2020-07-21] MEDS ORDERED: MEPERIDINE/PF 100 MG/ML ONE (12:26)
[2020-07-21] MEDS ORDERED: PROMETHAZINE 25 MG/ML, 1ML ONE (12:27)
[2020-07-21] MEDS ORDERED: MEPERIDINE/PF 50 MG/ML IM PRN (12:30)
[2020-07-21] MEDS ORDERED: PROMETHAZINE 25 MG/ML, 1ML IM ONE (12:30)
== END 2020-07-21 15:50 | disposition home or self-care (01) ==
LOC: OUT 06:16 → EDSTATUS 07:00 → OUT 15:50
PROVIDERS: ATTEND Internal Medicine Hematology & Oncology
DX: C34.11 Malignant neoplasm of upper lobe, right bronchus or lung (principal); C34.31 Malignant neoplasm of lower lobe, right bronchus or lung; I10 Essential (primary) hypertension; J44.9 Chronic obstructive pulmonary disease, unspecified; Z87.891 Personal history of nicotine dependence; Z88.0 Allergy status to penicillin; Z99.81 Dependence on supplemental oxygen
CPT/HCPCS: 32405; 70250; 70553; 71045; 77012; 88305; 88333; 99156; 99157; A9575; J2175; J2250; J2550; J3010; J7030; J2310

== ENCOUNTER 2020-08-13 07:33 | Outpatient (CLI) | payer MEDICARE | END 2020-08-13 23:59 | disposition home or self-care (01) | LOC: ROC 07:33 | PROVIDERS: ATTEND Radiology Radiation Oncology | DX: C34.11 Malignant neoplasm of upper lobe, right bronchus or lung (principal); I25.10 Atherosclerotic heart disease of native coronary artery without angina pectoris; J44.9 Chronic obstructive pulmonary disease, unspecified; I10 Essential (primary) hypertension; Z99.81 Dependence on supplemental oxygen; Z87.891 Personal history of nicotine dependence | CPT/HCPCS: G0463 ==

== ENCOUNTER → 2020-12-06 | Outpatient (CLI) | payer MEDICARE ==
[~2020-12-06] MED LIST changes: +AMLO-211 PO; -AMLO10TA8 PO
== END | disposition home or self-care (01) ==
LOC: CFH 11:59
PROVIDERS: ATTEND Internal Medicine
DX: N28.1 Cyst of kidney, acquired (principal); N40.1 Benign prostatic hyperplasia with lower urinary tract symptoms; N17.9 Acute kidney failure, unspecified; I12.9 Hypertensive chronic kidney disease with stage 1 through stage 4 chronic kidney disease, or unspecified chronic kidney disease; N18.30 Chronic kidney disease, stage 3 unspecified; C34.90 Malignant neoplasm of unspecified part of unspecified bronchus or lung; J44.9 Chronic obstructive pulmonary disease, unspecified
CPT/HCPCS: 76770

== ENCOUNTER → 2020-12-10 | Outpatient (CLI) | payer MEDICARE | END | disposition home or self-care (01) | LOC: CFH 12:23 | PROVIDERS: ATTEND Radiology Radiation Oncology | DX: C34.11 Malignant neoplasm of upper lobe, right bronchus or lung (principal); I10 Essential (primary) hypertension | CPT/HCPCS: 71250 ==

== ENCOUNTER 2020-12-16 09:12 | Outpatient (CLI) | payer MEDICARE | END 2020-12-16 23:59 | disposition home or self-care (01) | LOC: ROC 09:12 | PROVIDERS: ATTEND Radiology Radiation Oncology | DX: Z08 Encounter for follow-up examination after completed treatment for malignant neoplasm (principal); Z85.118 Personal history of other malignant neoplasm of bronchus and lung; I25.10 Atherosclerotic heart disease of native coronary artery without angina pectoris; N40.1 Benign prostatic hyperplasia with lower urinary tract symptoms; J96.11 Chronic respiratory failure with hypoxia; E86.0 Dehydration; J43.9 Emphysema, unspecified; I12.9 Hypertensive chronic kidney disease with stage 1 through stage 4 chronic kidney disease, or unspecified chronic kidney disease; N18.30 Chronic kidney disease, stage 3 unspecified; E87.5 Hyperkalemia; E78.5 Hyperlipidemia, unspecified; I25.2 Old myocardial infarction; E78.00 Pure hypercholesterolemia, unspecified; Z95.1 Presence of aortocoronary bypass graft; Z87.891 Personal history of nicotine dependence | CPT/HCPCS: G0463 ==

== ENCOUNTER 2021-02-17 08:29 | Outpatient (CLI) | payer MEDICARE | END 2021-02-17 23:59 | disposition home or self-care (01) | LOC: CVU 08:29 | PROVIDERS: ATTEND Internal Medicine Cardiovascular Disease | DX: I08.2 Rheumatic disorders of both aortic and tricuspid valves (principal); I25.119 Atherosclerotic heart disease of native coronary artery with unspecified angina pectoris | CPT/HCPCS: 93306 ==

== ENCOUNTER → 2021-03-10 | Outpatient (CLI) | payer MEDICARE | END | disposition home or self-care (01) | LOC: CFH 13:11 | PROVIDERS: ATTEND Radiology Radiation Oncology | DX: C34.11 Malignant neoplasm of upper lobe, right bronchus or lung (principal); J43.9 Emphysema, unspecified; I77.810 Thoracic aortic ectasia; J98.4 Other disorders of lung; K76.89 Other specified diseases of liver; M51.34 Other intervertebral disc degeneration, thoracic region; M43.8X4 Other specified deforming dorsopathies, thoracic region; M85.88 Other specified disorders of bone density and structure, other site | CPT/HCPCS: 71250 ==

== ENCOUNTER → 2021-03-16 | Outpatient (CLI) | payer MEDICARE | END | disposition home or self-care (01) | LOC: ROC 07:40 | PROVIDERS: ATTEND Radiology Radiation Oncology | DX: C34.11 Malignant neoplasm of upper lobe, right bronchus or lung (principal); J43.9 Emphysema, unspecified; I25.10 Atherosclerotic heart disease of native coronary artery without angina pectoris; N40.1 Benign prostatic hyperplasia with lower urinary tract symptoms; I12.9 Hypertensive chronic kidney disease with stage 1 through stage 4 chronic kidney disease, or unspecified chronic kidney disease; N18.30 Chronic kidney disease, stage 3 unspecified | CPT/HCPCS: G0463 ==

== ENCOUNTER 2021-05-26 12:29 | Inpatient (IN) | payer MEDICARE ==
[2021-05-25] MEDS: BUDESONIDE 0.5 MG/2 ML INHA NPPB SCH (21:00)
[2021-05-25] MEDS: ALBUTEROL/IPRATROPIUM 2.5MG/0.5MG, 3 ML NPPB SCH (21:00)
[~2021-05-26] VITALS: Ht 182.9 cm; Wt 89.2 kg
[2021-05-26] MEDS ORDERED: SODIUM CHLORIDE FLUSH 10ML SYR IVF ONE (13:00)
[2021-05-26] MEDS ORDERED: SODIUM CHLORIDE 0.9% 1,000ML IVBOLUS ONE ×2 (13:00→15:30)
[2021-05-26 13:16] LABS: BASOPHILS % (AUTO) 0 % (0-1); EOSINOPHILS % (AUTO) 2 % (1-7); LYMPHOCYTES % (AUTO) 14 % (22-44); MEAN CORPUSCULAR HEMOGLOBIN 32.6 pg (27.5-34.5); MEAN CORPUSCULAR HGB CONC 33.8 g/dL (33.2-36.2); MEAN PLATELET VOLUME 8.2 fL (7.4-10.4); MONOCYTES % (AUTO) 9 % (2-9); NEUTROPHILS % (AUTO) 75 % (42-75); PLATELET COUNT 428 x10^3/uL (130-400); RED BLOOD COUNT 4.06 x10^6/uL (4.38-5.82); RED CELL DISTRIBUTION WIDTH 16.7 % (9.4-14.8)
[2021-05-26 13:25] LABS: ALANINE AMINOTRANSFERASE 19 U/L (12-78); ALBUMIN 3.2 g/dL (3.4-5.0); ANION GAP 9 mmol/L (5-15); CALCIUM 8.8 mg/dL (8.5-10.1); CHLORIDE 95 mmol/L (98-107)
[2021-05-26 13:30] LABS: ALKALINE PHOSPHATASE 67 U/L (45-117); BILIRUBIN,TOTAL 0.9 mg/dL (0.2-1.0); CREATININE 6.03 mg/dL (0.7-1.3)
[2021-05-26 13:35] LABS: TROPONIN I 0.179 ng/mL (0.000-0.045)
--- NOTE | 2021-05-26 13:36 | NUR ---
This pt has a hx of lung CA with lobectomy, he is no longer receiving chemo or radiation. Pt presents for increasing weakness, states he's no longer able to get out of bed. He also reports he has not urinated for a day and a half but reports drinking plenty of fluids. Pt is A&O. Connected to all monitors.
[2021-05-26 13:38] LABS: MICROSCOPIC AUTO
--- NOTE | 2021-05-26 13:45 | NUR ---
Late entry: POLI Wade straigh cath'd pt for UA, 250mls reported to be drained.
--- NOTE | 2021-05-26 13:49 | NUR ---
MD Fishman made aware of critical trop and BP.
--- NOTE | 2021-05-26 13:53 | NUR ---
Swati, , okay to update. .
[2021-05-26] MEDS ORDERED: DOXE10CA PO (14:00)
[2021-05-26] MEDS ORDERED: FOLI0.4T5 PO (14:00)
[2021-05-26] MEDS ORDERED: TAMS-11 PO (14:00)
[2021-05-26] MEDS ORDERED: ATOR20TA37 PO (14:00)
[2021-05-26] MEDS ORDERED: ALLO300T PO (14:00)
[2021-05-26] MEDS ORDERED: FENO43CA6 PO (14:01)
[2021-05-26] MEDS ORDERED: FINA1TAB16 PO (14:01)
[2021-05-26] MEDS ORDERED: SPIR25TA5 PO (14:02)
--- NOTE | 2021-05-26 14:03 | NUR ---
Pt remains oriented, pt is lethargic.
--- NOTE | 2021-05-26 15:02 | NUR ---
BREAK RN: JOHNATHAN NOTIFIED OF LOW BP. ERMD TO CONSULT HOSPITALIST.
--- NOTE | 2021-05-26 15:05 | NUR ---
BREAK RN: 2ND LITER NS BOLUS INFUSING.
--- NOTE | 2021-05-26 15:05 | NUR ---
BREAK RN: JOHNATHAN AT BEDSIDE TO ASSESS PT AND UPDATE ON POC.
--- NOTE | 2021-05-26 15:21 | NUR ---
BREAK RN: HOSPITALIST AT BEDSIDE TO ASSESS PT. PER ERMD, HOLD OFF ON SENDING PT TO FLOOR UNTIL AFTER ASSESSMENT TO MAKE SURE PT DOES NOT REQUIRE HIGHER LEVEL OF CARE.
[2021-05-26 15:46] LABS: TROPONIN I 0.159 ng/mL (0.000-0.045)
--- NOTE | 2021-05-26 15:51 | NUR ---
BREAK RN: REPORT BACK TO PRIMARY RNGAURI.
--- NOTE | 2021-05-26 16:19 | NUR ---
Previous 2 BPs after [facility] left bedside were 97/52 and 92/50. MD Fishman made aware, awaiting central line order.
--- NOTE | 2021-05-26 16:26 | NUR ---
Awaiting MD Lerma to come to bedside for evaluation to determine POC.
[2021-05-26] MEDS ORDERED: SODIUM CHLORIDE 0.9% 1,000 ML IV ONE (16:30)
--- NOTE | 2021-05-26 16:35 | NUR ---
Approx 200mls seen with bladder scanner.
--- NOTE | 2021-05-26 17:14 | NUR ---
Pt remains A&Ox4. Awaiting MD Maria Guadalupe rosas.
--- NOTE | 2021-05-26 17:57 | NUR ---
MD Bartonu at bedside, pt to be cardiac tele admit based on most recent BP or 101/52
[2021-05-26] MEDS ORDERED: ONDANSETRON 2MG/ML, 2ML IVPush PRN (18:00)
[2021-05-26] MEDS ORDERED: ONDANSETRON ODT 4 MG PO PRN (18:00)
[2021-05-26] MEDS ORDERED: HEPARIN 5,000 UNITS/ML, 1ML ONE (18:12)
[2021-05-26] MEDS: LACTATED RINGERS 1,000 ML IV SCH (18:19)
[2021-05-26] MEDS: HEPARIN 5,000 UNITS/ML, 1ML SQ SCH (18:20)
[2021-05-26] MEDS ORDERED: FAMOTIDINE 20 MG TABLET PO PRN (18:30)
--- NOTE | 2021-05-26 19:00 | NUR ---
Report to POLI Landon and POLI You.
--- NOTE | 2021-05-26 19:15 | NUR ---
FIRST CONTACT WITH PATIENT. PATIENT RESTING IN STRETCHER IN NAD. PATIENT STATES HE IS HUNGRY. THIS RN PROVIDED PATIENT WITH SANDWHICH PER CARDIAC DIET ORDER. VSS. CALL CONTI IN REACH. WILL CONTINUE TO MONITOR.
--- NOTE | 2021-05-26 19:55 | NUR ---
Report to Hellen, kimberley RN.
[2021-05-26 21:00] VITALS: BP 94/56
[2021-05-26] MEDS: DOXEPIN HCL 3 MG PO SCH (21:00)
[2021-05-26] MEDS ORDERED: ALPR1TAB PO (21:08)
[2021-05-26] MEDS ORDERED: ALLO100T30 PO (23:00)
[2021-05-26] MEDS ORDERED: FOLI1TAB32 PO (23:00)
[2021-05-26] MEDS ORDERED: ATOR40TA78 PO (23:00)
[2021-05-26] MEDS ORDERED: FENO160T PO (23:00)
[2021-05-26] MEDS: ACETAMINOPHEN 325 MG TABLET PO PRN (23:13)
[2021-05-26] MEDS: ATORVASTATIN 40 MG TABLET PO SCH (23:13)
[2021-05-27 01:28] VITALS: BP 104/61
[2021-05-27] MEDS: ALBUTEROL/IPRATROPIUM 2.5MG/0.5MG, 3 ML NPPB SCH ×4 (02:30→19:42)
[2021-05-27] MEDS: HEPARIN 5,000 UNITS/ML, 1ML SQ SCH ×3 (02:51→18:19)
[2021-05-27] MEDS: LACTATED RINGERS 1,000 ML IV SCH ×2 (02:52→10:52)
[2021-05-27] MEDS: ACETAMINOPHEN 325 MG TABLET PO PRN ×2 (05:05→21:06)
[2021-05-27 05:15] LABS: BASOPHILS % (AUTO) 1 % (0-1); EOSINOPHILS % (AUTO) 2 % (1-7); LYMPHOCYTES % (AUTO) 14 % (22-44); MEAN CORPUSCULAR HEMOGLOBIN 32.4 pg (27.5-34.5); MEAN CORPUSCULAR HGB CONC 33.1 g/dL (33.2-36.2); MEAN PLATELET VOLUME 7.9 fL (7.4-10.4); MONOCYTES % (AUTO) 9 % (2-9); NEUTROPHILS % (AUTO) 75 % (42-75); PLATELET COUNT 352 x10^3/uL (130-400); RED BLOOD COUNT 3.58 x10^6/uL (4.38-5.82); RED CELL DISTRIBUTION WIDTH 16.6 % (9.4-14.8)
[2021-05-27 05:23] LABS: ALANINE AMINOTRANSFERASE 16 U/L (12-78); ALBUMIN 2.6 g/dL (3.4-5.0)
[2021-05-27 05:29] LABS: ANION GAP 4 mmol/L (5-15); CHLORIDE 104 mmol/L (98-107)
[2021-05-27 05:37] LABS: ALKALINE PHOSPHATASE 54 U/L (45-117); BILIRUBIN,TOTAL 0.5 mg/dL (0.2-1.0); CREATININE 4.32 mg/dL (0.7-1.3); TOTAL PROTEIN 5.7 g/dL (6.4-8.2)
[2021-05-27] MEDS ORDERED: POTASSIUM CHLORIDE 20 MEQ TAB.ER.PRT PO ONE (07:00)
[2021-05-27 07:40] VITALS: BP 105/61
[2021-05-27] MEDS: CHOLECALCIFEROL 1,000 UNIT TABLET PO SCH (08:24)
[2021-05-27] MEDS: ASPIRIN 81 MG TABLET EC PO SCH (08:24)
[2021-05-27] MEDS: ASCORBIC ACID 500 MG TABLET PO SCH (08:24)
[2021-05-27] MEDS: BUDESONIDE 0.5 MG/2 ML INHA NPPB SCH ×2 (09:00→19:42)
[2021-05-27] MEDS ORDERED: TEMPLATE NON-FORMULARY MED. (Finasteride** 1 MG) PO SCH (09:00)
[2021-05-27 14:48] VITALS: BP 109/60
[2021-05-27 20:35] VITALS: BP 147/61
[2021-05-27] MEDS: DOXEPIN HCL 3 MG PO SCH (21:00)
[2021-05-27] MEDS: ATORVASTATIN 40 MG TABLET PO SCH (21:06)
[2021-05-28 00:47] VITALS: BP 119/82
[2021-05-28] MEDS: ACETAMINOPHEN 325 MG TABLET PO PRN ×2 (00:55→08:21)
[2021-05-28] MEDS: HEPARIN 5,000 UNITS/ML, 1ML SQ SCH ×3 (00:55→18:19)
[2021-05-28] MEDS: ALBUTEROL/IPRATROPIUM 2.5MG/0.5MG, 3 ML NPPB SCH ×4 (03:00→18:59)
[2021-05-28 05:13] LABS: BASOPHILS % (AUTO) 0 % (0-1); EOSINOPHILS % (AUTO) 0 % (1-7); LYMPHOCYTES % (AUTO) 3 % (22-44); MEAN CORPUSCULAR HEMOGLOBIN 32.7 pg (27.5-34.5); MEAN CORPUSCULAR HGB CONC 33.5 g/dL (33.2-36.2); MEAN PLATELET VOLUME 7.8 fL (7.4-10.4); MONOCYTES % (AUTO) 9 % (2-9); NEUTROPHILS % (AUTO) 88 % (42-75); PLATELET COUNT 383 x10^3/uL (130-400); RED BLOOD COUNT 3.88 x10^6/uL (4.38-5.82); RED CELL DISTRIBUTION WIDTH 16.3 % (9.4-14.8)
[2021-05-28 05:20] LABS: CALCIUM 9.2 mg/dL (8.5-10.1)
[2021-05-28 05:25] LABS: ALBUMIN 2.9 g/dL (3.4-5.0); ANION GAP 7 mmol/L (5-15); CALCIUM 8.9 mg/dL (8.5-10.1); CHLORIDE 100 mmol/L (98-107)
[2021-05-28 05:31] LABS: % IRON SATURATION 17 % (20-55); ALANINE AMINOTRANSFERASE 17 U/L (12-78); ALKALINE PHOSPHATASE 59 U/L (45-117); CREATININE 2.27 mg/dL (0.7-1.3); IRON LEVEL 51 mcg/dL (65-175); TOTAL IRON BINDING CAPACITY 303 mcg/dL (250-450); TOTAL PROTEIN 6.8 g/dL (6.4-8.2)
[2021-05-28] MEDS: CEFTRIAXONE 2 GM in DEXTROSE 5% 50 ML IVPB SCH (08:20)
[2021-05-28] MEDS: ASCORBIC ACID 500 MG TABLET PO SCH (08:20)
[2021-05-28] MEDS: CHOLECALCIFEROL 1,000 UNIT TABLET PO SCH (08:21)
[2021-05-28] MEDS: ASPIRIN 81 MG TABLET EC PO SCH (08:21)
[2021-05-28] MEDS: FINASTERIDE 5 MG TABLET HOMEMEDPO SCH (08:22)
[2021-05-28] MEDS ORDERED: POTASSIUM CHLORIDE 20 MEQ TAB.ER.PRT PO ONE (08:30)
[2021-05-28 08:48] LABS: TROPONIN I 0.049 ng/mL (0.000-0.045)
[2021-05-28 08:57] VITALS: BP 104/63
[2021-05-28] MEDS: BUDESONIDE 0.5 MG/2 ML INHA NPPB SCH ×2 (09:08→18:59)
[2021-05-28 10:50] LABS: MICROSCOPIC INDICATED
[2021-05-28 13:10] VITALS: BP 107/62
[2021-05-28] MEDS ORDERED: MAGNESIUM SULFATE PMX 2GM/50ML 50 ML IV ONE (16:00)
[2021-05-28] MEDS ORDERED: DOCUSATE 100 MG CAPSULE PO PRN (16:00)
[2021-05-28] MEDS: DOXEPIN HCL 3 MG PO SCH (21:00)
[2021-05-28 21:05] VITALS: BP 129/77
[2021-05-28] MEDS: ATORVASTATIN 40 MG TABLET PO SCH (21:15)
[2021-05-28] MEDS: ALPRazolam 1MG TAB PO PRN (21:16)
[2021-05-29 01:45] VITALS: BP 99/64
[2021-05-29] MEDS: HEPARIN 5,000 UNITS/ML, 1ML SQ SCH ×3 (01:50→17:23)
[2021-05-29] MEDS: ALBUTEROL/IPRATROPIUM 2.5MG/0.5MG, 3 ML NPPB SCH ×4 (03:00→20:16)
[2021-05-29 05:17] LABS: BASOPHILS % (AUTO) 0 % (0-1); EOSINOPHILS % (AUTO) 0 % (1-7); LYMPHOCYTES % (AUTO) 6 % (22-44); MEAN CORPUSCULAR HEMOGLOBIN 32.4 pg (27.5-34.5); MEAN CORPUSCULAR HGB CONC 33.3 g/dL (33.2-36.2); MEAN PLATELET VOLUME 8.2 fL (7.4-10.4); MONOCYTES % (AUTO) 8 % (2-9); NEUTROPHILS % (AUTO) 86 % (42-75); PLATELET COUNT 346 x10^3/uL (130-400); RED BLOOD COUNT 3.78 x10^6/uL (4.38-5.82); RED CELL DISTRIBUTION WIDTH 16.5 % (9.4-14.8)
[2021-05-29 05:20] LABS: CHLORIDE 101 mmol/L (98-107)
[2021-05-29 05:31] LABS: ALANINE AMINOTRANSFERASE 15 U/L (12-78); ALBUMIN 2.7 g/dL (3.4-5.0); ALKALINE PHOSPHATASE 69 U/L (45-117); ANION GAP 3 mmol/L (5-15); BILIRUBIN,TOTAL 0.7 mg/dL (0.2-1.0); CALCIUM 8.8 mg/dL (8.5-10.1); CREATININE 2.04 mg/dL (0.7-1.3); TOTAL PROTEIN 6.6 g/dL (6.4-8.2)
[2021-05-29 06:49] VITALS: BP 105/67
[2021-05-29] MEDS: CEFTRIAXONE 2 GM in DEXTROSE 5% 50 ML IVPB SCH (08:21)
[2021-05-29] MEDS: CHOLECALCIFEROL 1,000 UNIT TABLET PO SCH (08:23)
[2021-05-29] MEDS: ASPIRIN 81 MG TABLET EC PO SCH (08:23)
[2021-05-29] MEDS: FINASTERIDE 5 MG TABLET HOMEMEDPO SCH ×2 (08:23→09:00)
[2021-05-29] MEDS: ASCORBIC ACID 500 MG TABLET PO SCH (08:23)
[2021-05-29] MEDS: BUDESONIDE 0.5 MG/2 ML INHA NPPB SCH ×2 (09:00→20:17)
[2021-05-29] MEDS: SODIUM CHLORIDE 0.9% 1,000 ML IV SCH ×2 (10:14→23:43)
[2021-05-29] MEDS ORDERED: MAGNESIUM HYDROXIDE 8%, 30ML UDC ONE (11:40)
[2021-05-29] MEDS ORDERED: MAGNESIUM HYDROXIDE 8%, 30ML UDC PO PRN (12:00)
[2021-05-29] MEDS: ACETAMINOPHEN 325 MG TABLET PO PRN (14:28)
[2021-05-29 15:47] VITALS: BP 111/73
[2021-05-29 19:51] VITALS: BP 130/72
[2021-05-29] MEDS: ATORVASTATIN 40 MG TABLET PO SCH (20:40)
[2021-05-29] MEDS: DOXEPIN HCL 3 MG PO SCH (20:45)
[2021-05-29] MEDS: ALPRazolam 1MG TAB PO PRN (20:45)
[2021-05-30] MEDS: ACETAMINOPHEN 325 MG TABLET PO PRN (00:27)
[2021-05-30 00:38] VITALS: BP 105/65
[2021-05-30] MEDS: ALBUTEROL/IPRATROPIUM 2.5MG/0.5MG, 3 ML NPPB SCH ×5 (02:15→15:20)
[2021-05-30] MEDS: HEPARIN 5,000 UNITS/ML, 1ML SQ SCH ×2 (02:37→11:28)
[2021-05-30 05:09] LABS: BASOPHILS % (AUTO) 1 % (0-1); EOSINOPHILS % (AUTO) 3 % (1-7); LYMPHOCYTES % (AUTO) 8 % (22-44); MEAN CORPUSCULAR HEMOGLOBIN 33.2 pg (27.5-34.5); MEAN CORPUSCULAR HGB CONC 33.6 g/dL (33.2-36.2); MEAN PLATELET VOLUME 8.2 fL (7.4-10.4); MONOCYTES % (AUTO) 10 % (2-9); NEUTROPHILS % (AUTO) 79 % (42-75); PLATELET COUNT 321 x10^3/uL (130-400); RED BLOOD COUNT 3.59 x10^6/uL (4.38-5.82); RED CELL DISTRIBUTION WIDTH 16.3 % (9.4-14.8)
[2021-05-30 05:23] LABS: CHLORIDE 101 mmol/L (98-107)
[2021-05-30 05:55] LABS: ALBUMIN 2.5 g/dL (3.4-5.0); ANION GAP 2 mmol/L (5-15); CALCIUM 8.5 mg/dL (8.5-10.1); CREATININE 1.64 mg/dL (0.7-1.3)
[2021-05-30 06:50] VITALS: BP 120/70
[2021-05-30] MEDS: BUDESONIDE 0.5 MG/2 ML INHA NPPB SCH (07:30)
[2021-05-30] MEDS: CHOLECALCIFEROL 1,000 UNIT TABLET PO SCH (08:19)
[2021-05-30] MEDS: ASPIRIN 81 MG TABLET EC PO SCH (08:19)
[2021-05-30] MEDS: CEFTRIAXONE 2 GM in DEXTROSE 5% 50 ML IVPB SCH (08:19)
[2021-05-30] MEDS: FINASTERIDE 5 MG TABLET HOMEMEDPO SCH (08:20)
[2021-05-30 12:30] VITALS: BP 126/72
[2021-05-30] MEDS: SODIUM CHLORIDE 0.9% 1,000 ML IV SCH (13:10)
[2021-05-30] MEDS ORDERED: CEFD300C37 PO (15:11)
[2021-05-30] MEDS ORDERED: LACT1TAB13 PO (15:11)
[2021-05-30] MEDS ORDERED: CEFDINIR 300 MG CAPSULE PO SCH (15:30)
== END 2021-05-30 17:40 | disposition home health service (06) | DRG 871 ==
LOC: SUATTDRO 14:20 → ED 14:26 → EDIP 17:09 → 5SO 20:16
PROVIDERS: ADMIT Family Medicine; ATTEND Internal Medicine
DX: A41.9 Sepsis, unspecified organism (principal); I21.A1 Myocardial infarction type 2; N39.0 Urinary tract infection, site not specified; E87.2 Acidosis; I13.0 Hypertensive heart and chronic kidney disease with heart failure and stage 1 through stage 4 chronic kidney disease, or unspecified chronic kidney disease; I50.32 Chronic diastolic (congestive) heart failure; J96.10 Chronic respiratory failure, unspecified whether with hypoxia or hypercapnia; E87.1 Hypo-osmolality and hyponatremia; N17.9 Acute kidney failure, unspecified; Z66 Do not resuscitate; B96.89 Other specified bacterial agents as the cause of diseases classified elsewhere; E78.5 Hyperlipidemia, unspecified; E86.0 Dehydration; E87.6 Hypokalemia; G47.00 Insomnia, unspecified; G89.29 Other chronic pain; D53.9 Nutritional anemia, unspecified; E83.39 Other disorders of phosphorus metabolism; E83.42 Hypomagnesemia; I25.10 Atherosclerotic heart disease of native coronary artery without angina pectoris; I27.20 Pulmonary hypertension, unspecified; J44.9 Chronic obstructive pulmonary disease, unspecified; K59.00 Constipation, unspecified; N18.30 Chronic kidney disease, stage 3 unspecified; N40.0 Benign prostatic hyperplasia without lower urinary tract symptoms; R13.10 Dysphagia, unspecified; R62.7 Adult failure to thrive; Z85.118 Personal history of other malignant neoplasm of bronchus and lung; Z87.891 Personal history of nicotine dependence; I25.2 Old myocardial infarction; Z90.2 Acquired absence of lung [part of]; Z92.21 Personal history of antineoplastic chemotherapy; Z92.3 Personal history of irradiation; Z95.1 Presence of aortocoronary bypass graft; Z99.3 Dependence on wheelchair; Z99.81 Dependence on supplemental oxygen; Z79.899 Other long term (current) drug therapy; Z68.26 Body mass index [BMI] 26.0-26.9, adult; Z90.49 Acquired absence of other specified parts of digestive tract; Z88.0 Allergy status to penicillin
CPT/HCPCS: 36415; 71045; 76770; 80053; 80069; 81001; 82306; 82310; 82607; 82728; 83540; 83550; 83605; 83735; 83880; 83970; 84100; 84145; 84443; 84484; 85025; 87040; 87077; 87086; 87184; 87186; 93005; 94640; 96360; G0378; J0696; J1644; J2405; J7626; J3475; J7030; J7120

== ENCOUNTER 2021-05-31 14:28 | Inpatient (IN) | payer MEDICARE ==
[~2021-05-31] VITALS: Ht 188 cm; Wt 91.0 kg
[~2021-05-31 14:28] MED LIST changes: +ALLO100T30 PO; +ALLO300T PO; +ALPR1TAB PO; +ATOR20TA37 PO; +ATOR40TA78 PO; +DOXE10CA PO; +FENO160T PO; +FENO43CA6 PO; +FINA1TAB16 PO; +FOLI0.4T5 PO; +FOLI1TAB32 PO; +LACT1TAB13 PO; +SPIR25TA5 PO; +TAMS-11 PO
[2021-05-31] MEDS ORDERED: SODIUM CHLORIDE FLUSH 10ML SYR IVF ONE (15:30)
[2021-05-31] MEDS ORDERED: SODIUM CHLORIDE 0.9% 1,000 ML IV ONE (15:30)
[2021-05-31 16:23] LABS: ALANINE AMINOTRANSFERASE 26 U/L (12-78); ALBUMIN 2.9 g/dL (3.4-5.0); ANION GAP 7 mmol/L (5-15); BASOPHILS % (AUTO) 1 % (0-1); CALCIUM 8.9 mg/dL (8.5-10.1); CHLORIDE 103 mmol/L (98-107); CREATININE 1.33 mg/dL (0.7-1.3); EOSINOPHILS % (AUTO) 4 % (1-7); LYMPHOCYTES % (AUTO) 13 % (22-44); MEAN CORPUSCULAR HEMOGLOBIN 32.6 pg (27.5-34.5); MEAN CORPUSCULAR HGB CONC 33.2 g/dL (33.2-36.2); MEAN PLATELET VOLUME 8.5 fL (7.4-10.4); MONOCYTES % (AUTO) 13 % (2-9); NEUTROPHILS % (AUTO) 69 % (42-75); PLATELET COUNT 382 x10^3/uL (130-400); RED BLOOD COUNT 3.99 x10^6/uL (4.38-5.82); RED CELL DISTRIBUTION WIDTH 16.7 % (9.4-14.8)
[2021-05-31 16:40] LABS: ALKALINE PHOSPHATASE 69 U/L (45-117); BILIRUBIN,TOTAL 0.4 mg/dL (0.2-1.0); TOTAL PROTEIN 7.5 g/dL (6.4-8.2)
--- NOTE | 2021-05-31 17:02 | NUR ---
car packer note: Pt to room from lobby.
--- NOTE | 2021-05-31 17:31 | NUR ---
PT HERE FOR CALL BACK ON +ESBL MICRO. PT ON VITALS MONITORS, FALL PRECAUTIONS IN PLACE. FAMILY AT BEDSIDE.
[2021-05-31] MEDS ORDERED: SODIUM CHLORIDE FLUSH 10ML SYR IVF PRN (18:00)
--- NOTE | 2021-05-31 18:47 | NUR ---
HOSPITALIST EUGENE SMALL AT BEDSIDE.
--- NOTE | 2021-05-31 18:52 | NUR ---
REPORT TO LEXY ASHTON.
[2021-05-31] MEDS: MEROPENEM 1 GM in SODIUM CHLORIDE 0.9% 100 ML IV SCH (19:00)
[2021-05-31 21:00] VITALS: BP 158/82
[2021-05-31] MEDS: ACETAMINOPHEN 325 MG TABLET PO PRN (21:23)
[2021-05-31] MEDS: HEPARIN 5,000 UNITS/ML, 1ML SQ SCH (21:24)
[2021-06-01 01:47] VITALS: BP 133/76
[2021-06-01] MEDS ORDERED: MORPHINE SULFATE 4 MG/ML, 1ML IVPush PRN (04:00)
[2021-06-01] MEDS: MEROPENEM 1 GM in SODIUM CHLORIDE 0.9% 100 ML IV SCH (04:48)
[2021-06-01] MEDS: HEPARIN 5,000 UNITS/ML, 1ML SQ SCH ×2 (05:48→17:06)
[2021-06-01 06:11] LABS: BASOPHILS % (AUTO) 1 % (0-1); EOSINOPHILS % (AUTO) 7 % (1-7); LYMPHOCYTES % (AUTO) 14 % (22-44); MEAN CORPUSCULAR HGB CONC 33.6 g/dL (33.2-36.2); MEAN PLATELET VOLUME 8.4 fL (7.4-10.4); MONOCYTES % (AUTO) 13 % (2-9); NEUTROPHILS % (AUTO) 65 % (42-75); PLATELET COUNT 336 x10^3/uL (130-400); RED CELL DISTRIBUTION WIDTH 16.3 % (9.4-14.8)
[2021-06-01 06:24] LABS: ANION GAP 5 mmol/L (5-15); CALCIUM 8.2 mg/dL (8.5-10.1); CHLORIDE 106 mmol/L (98-107)
[2021-06-01 06:25] LABS: CREATININE 1.13 mg/dL (0.7-1.3)
[2021-06-01] MEDS ORDERED: MAGNESIUM SULFATE PMX 4GM/100M 100 ML IVPB ONE (06:30)
[2021-06-01 07:18] VITALS: BP 134/75
[2021-06-01] MEDS: ASPIRIN 81 MG TABLET EC PO SCH (10:01)
[2021-06-01] MEDS: FOLIC ACID 1 MG TABLET PO SCH (10:01)
[2021-06-01] MEDS: ATORVASTATIN 40 MG TABLET PO SCH (10:01)
[2021-06-01] MEDS: POTASSIUM CHLORIDE 20 MEQ TAB.ER.PRT PO SCH ×3 (10:01→23:22)
[2021-06-01] MEDS: MAGNESIUM OXIDE 400 MG TABLET PO SCH (10:01)
[2021-06-01] MEDS: FINASTERIDE 5 MG TABLET HOMEMEDPO SCH (10:19)
[2021-06-01] MEDS ORDERED: ERTAPENEM 1 GM in SODIUM CHLORIDE 0.9% 50 ML IV SCH (12:00)
[2021-06-01 13:37] VITALS: BP 136/72
[2021-06-01 19:39] VITALS: BP 148/86
[2021-06-01] MEDS: ACETAMINOPHEN 325 MG TABLET PO PRN (23:22)
[2021-06-02 00:30] VITALS: BP 126/73
[2021-06-02] MEDS: HEPARIN 5,000 UNITS/ML, 1ML SQ SCH ×2 (01:06→09:44)
[2021-06-02 05:29] LABS: BASOPHILS % (AUTO) 1 % (0-1); EOSINOPHILS % (AUTO) 6 % (1-7); LYMPHOCYTES % (AUTO) 13 % (22-44); MEAN CORPUSCULAR HEMOGLOBIN 32.7 pg (27.5-34.5); MEAN CORPUSCULAR HGB CONC 33.5 g/dL (33.2-36.2); MEAN PLATELET VOLUME 7.6 fL (7.4-10.4); MONOCYTES % (AUTO) 12 % (2-9); NEUTROPHILS % (AUTO) 69 % (42-75); PLATELET COUNT 339 x10^3/uL (130-400); RED BLOOD COUNT 3.55 x10^6/uL (4.38-5.82); RED CELL DISTRIBUTION WIDTH 16.4 % (9.4-14.8)
[2021-06-02 05:50] LABS: CHLORIDE 108 mmol/L (98-107)
[2021-06-02 06:10] LABS: ANION GAP 4 mmol/L (5-15); CALCIUM 8.5 mg/dL (8.5-10.1); CREATININE 1.17 mg/dL (0.7-1.3)
[2021-06-02 08:02] VITALS: BP 161/85
[2021-06-02] MEDS ORDERED: POTASSIUM ACID PHOSPHATE 500 MG TABLET.SOL PO SCH (08:30)
[2021-06-02] MEDS ORDERED: ERTAPENEM 1 GM in SODIUM CHLORIDE 0.9% 50 ML IV SCH (08:30)
[2021-06-02] MEDS ORDERED: ERTA1VIA4 IV (08:37)
[2021-06-02] MEDS ORDERED: METO25TA35 PO (08:37)
[2021-06-02] MEDS ORDERED: MAGN400T50 PO (08:37)
[2021-06-02] MEDS: FINASTERIDE 5 MG TABLET HOMEMEDPO SCH (09:00)
[2021-06-02] MEDS: FOLIC ACID 1 MG TABLET PO SCH (09:43)
[2021-06-02] MEDS: MAGNESIUM OXIDE 400 MG TABLET PO SCH (09:44)
[2021-06-02] MEDS: ATORVASTATIN 40 MG TABLET PO SCH (09:44)
[2021-06-02] MEDS: ASPIRIN 81 MG TABLET EC PO SCH (09:44)
[2021-06-02] MEDS ORDERED: CALCIUM CARBONATE 500 MG TAB.CHEW ONE (12:50)
[2021-06-02] MEDS: ACETAMINOPHEN 325 MG TABLET PO PRN (12:52)
[2021-06-02] MEDS ORDERED: CALCIUM CARBONATE 500 MG TAB.CHEW PO ONE (13:00)
[2021-06-02] MEDS ORDERED: METOPROLOL TARTRATE 25 MG TAB PO SCH (18:00)
[2021-06-02] MEDS ORDERED: ALPR1TAB2 PO (19:00)
== END 2021-06-02 14:22 | DRG 690 ==
LOC: ED 15:00 → EDIP 18:41 → 4NE 20:20
PROVIDERS: ADMIT Family Medicine; ATTEND Internal Medicine
PROC: 02HV33Z Insertion of Infusion Device into Superior Vena Cava, Percutaneous Approach (ICD-10-PCS; principal; 2021-06-01)
PROC: B548ZZA Ultrasonography of Superior Vena Cava, Guidance (ICD-10-PCS; 2021-06-01)
DX: N10 Acute pyelonephritis (principal); Z16.12 Extended spectrum beta lactamase (ESBL) resistance; C34.90 Malignant neoplasm of unspecified part of unspecified bronchus or lung; E87.1 Hypo-osmolality and hyponatremia; I13.0 Hypertensive heart and chronic kidney disease with heart failure and stage 1 through stage 4 chronic kidney disease, or unspecified chronic kidney disease; I50.32 Chronic diastolic (congestive) heart failure; J96.11 Chronic respiratory failure with hypoxia; B96.89 Other specified bacterial agents as the cause of diseases classified elsewhere; N18.30 Chronic kidney disease, stage 3 unspecified; B96.20 Unspecified Escherichia coli [E. coli] as the cause of diseases classified elsewhere; D53.9 Nutritional anemia, unspecified; D63.8 Anemia in other chronic diseases classified elsewhere; E78.00 Pure hypercholesterolemia, unspecified; E78.5 Hyperlipidemia, unspecified; E83.39 Other disorders of phosphorus metabolism; E83.42 Hypomagnesemia; E87.6 Hypokalemia; G47.00 Insomnia, unspecified; I25.10 Atherosclerotic heart disease of native coronary artery without angina pectoris; I25.2 Old myocardial infarction; I27.20 Pulmonary hypertension, unspecified; I77.819 Aortic ectasia, unspecified site; J43.9 Emphysema, unspecified; K59.00 Constipation, unspecified; N40.0 Benign prostatic hyperplasia without lower urinary tract symptoms; R62.7 Adult failure to thrive; Z66 Do not resuscitate; Z80.41 Family history of malignant neoplasm of ovary; Z82.49 Family history of ischemic heart disease and other diseases of the circulatory system; Z82.5 Family history of asthma and other chronic lower respiratory diseases; Z85.118 Personal history of other malignant neoplasm of bronchus and lung; Z87.891 Personal history of nicotine dependence; Z88.0 Allergy status to penicillin; Z90.2 Acquired absence of lung [part of]; Z92.21 Personal history of antineoplastic chemotherapy; Z92.3 Personal history of irradiation; Z95.1 Presence of aortocoronary bypass graft; Z99.3 Dependence on wheelchair; Z99.81 Dependence on supplemental oxygen; Z90.49 Acquired absence of other specified parts of digestive tract; Z83.3 Family history of diabetes mellitus
CPT/HCPCS: 36415; 36573; 80048; 80053; 83605; 83735; 84100; 85025; 87040; 96374; 96375; 96376; G0378; J1335; J1644; J2185; C1751; J2270; J3475; J7030

== ENCOUNTER → 2021-06-23 | Outpatient (CLI) | payer MEDICARE ==
[~2021-06-23] MED LIST changes: +ALPR1TAB2 PO; +ERTA1VIA4 IV; +MAGN400T50 PO; +METO25TA35 PO
[2021-06-23 14:12] LABS: MICROSCOPIC INDICATED
== END | disposition home or self-care (01) ==
LOC: CFH 12:10
PROVIDERS: ATTEND Radiology Radiation Oncology
DX: C34.11 Malignant neoplasm of upper lobe, right bronchus or lung (principal); N30.00 Acute cystitis without hematuria; J18.9 Pneumonia, unspecified organism; I70.0 Atherosclerosis of aorta; K76.89 Other specified diseases of liver; N28.1 Cyst of kidney, acquired; J98.4 Other disorders of lung; J43.2 Centrilobular emphysema; J98.11 Atelectasis
CPT/HCPCS: 71046; 71250; 81001; 87077; 87086

== ENCOUNTER 2021-06-30 14:07 | Inpatient (IN) | payer MEDICARE ==
[~2021-06-30] VITALS: Ht 182.9 cm; Wt 93.3 kg
[~2021-06-30 14:07] MED LIST changes: -DOXY100C2 PO; +DOXY100C5 PO
--- NOTE | 2021-06-30 14:57 | NUR ---
ASSUMED CARE OF PATIENT. PATIENT REPORTS HE HAS HAD SOME LOOSE STOOL PT HAS BEEN ON ABX. VS STABLE. NO ACUTE DISTRESS NOTED. PT IS ON 3L NC OXYGEN AT HOME. PT HAS A HISTORY OF LUNG CANCER OF COPD. AT BEDSIDE. CALL LIGHT IN PLACE. WILL CONTINUE TO MONITOR.
--- NOTE | 2021-06-30 15:06 | NUR ---
DR FOWLER IN ROOM
[2021-06-30] MEDS ORDERED: SODIUM CHLORIDE FLUSH 10ML SYR IVF ONE (15:30)
[2021-06-30] MEDS ORDERED: SODIUM CHLORIDE 0.9% 1,000ML IVBOLUS ONE (15:30)
--- NOTE | 2021-06-30 15:37 | NUR ---
LAB IN ROOM
[2021-06-30 15:50] LABS: BASOPHILS % (AUTO) 1 % (0-1); EOSINOPHILS % (AUTO) 3 % (1-7); LYMPHOCYTES % (AUTO) 18 % (22-44); MEAN CORPUSCULAR HEMOGLOBIN 32.9 pg (27.5-34.5); MEAN CORPUSCULAR HGB CONC 32.9 g/dL (33.2-36.2); MEAN PLATELET VOLUME 8.4 fL (7.4-10.4); MONOCYTES % (AUTO) 12 % (2-9); NEUTROPHILS % (AUTO) 67 % (42-75); PLATELET COUNT 347 x10^3/uL (130-400); RED BLOOD COUNT 3.84 x10^6/uL (4.38-5.82); RED CELL DISTRIBUTION WIDTH 17.3 % (9.4-14.8)
--- NOTE | 2021-06-30 15:56 | NUR ---
PT RESTING IN ROOM. PT IS NOT ABLE TO GIVE STOOL SAMPLE AT THIS TIME. AT BEDSIDE. CALL LIGHT IN PLACE. WILL CONTINUE TO MONITOR.
[2021-06-30 16:00] LABS: ALBUMIN 3.1 g/dL (3.4-5.0); ANION GAP 6 mmol/L (5-15); CALCIUM 8.5 mg/dL (8.5-10.1); CHLORIDE 107 mmol/L (98-107)
[2021-06-30 16:04] LABS: ALANINE AMINOTRANSFERASE 18 U/L (12-78); ALKALINE PHOSPHATASE 81 U/L (45-117); BILIRUBIN,TOTAL 0.5 mg/dL (0.2-1.0); CREATININE 2.24 mg/dL (0.7-1.3); TOTAL PROTEIN 6.8 g/dL (6.4-8.2)
--- NOTE | 2021-06-30 16:35 | NUR ---
PT WATCHING TV, AT BEDSIDE. CALL LIGHT IN PLACE. WILL CONTINUE TO MONITOR.
[2021-06-30] MEDS ORDERED: TAMSULOSIN PO (16:39)
[2021-06-30] MEDS ORDERED: AMLO-150 PO (16:40)
[2021-06-30] MEDS ORDERED: FURO20TA3 PO (16:41)
[2021-06-30] MEDS ORDERED: METO-93 PO (16:42)
[2021-06-30] MEDS ORDERED: SPIR25TA5 PO (16:43)
[2021-06-30] MEDS ORDERED: HYDR25TA6 PO (16:44)
[2021-06-30] MEDS ORDERED: INCRUSE ELLIPTA (16:45)
[2021-06-30] MEDS ORDERED: BREO ELLIPTA (16:45)
--- NOTE | 2021-06-30 17:27 | NUR ---
DR MOORE IN ROOM UPDATING PATIENT. PATIENT IS NOT ABLE TO URINTE, PT REPORTS HE HAS NOT URINATE SINCE LAST NIGHT. DR FOWLER WANTS CASTILLO CATH PLACED.
[2021-06-30] MEDS ORDERED: SODIUM CHLORIDE FLUSH 10ML SYR IVF PRN (18:00)
[2021-06-30] MEDS ORDERED: SODIUM CHLORIDE 0.9% 1,000 ML IV ONE (18:00)
[2021-06-30 18:10] LABS: MICROSCOPIC INDICATED
--- NOTE | 2021-06-30 18:45 | NUR ---
PT REPORTS HE HAS HAD CATHETERS IN THE PAST FROM NOT BEING ABLE TO EMPTY HIS BLADDER. PT ALSO REPORTS HIS UROLOGIST WANTS HIM TO GET CIRCUMCISED BECAUSE HIS FORESKIN HAS GROWN TO THE HEAD OF HIS PENIS. LISETH Nathan NP IN ROOM. PROVIDER IS AWARE. CATHETER IS DRAINING, 400 ML IN THE BAG. VS STABLE. CALL LIGHT IN PLACE. WILL CONTINUE TO MONITOR.
[2021-06-30 19:47] VITALS: BP 145/77
[2021-06-30 20:00] VITALS: BP 145/77
[2021-06-30] MEDS: SODIUM CHLORIDE 0.9% 1,000 ML IV SCH (20:16)
[2021-06-30] MEDS: HEPARIN 5,000 UNITS/ML, 1ML SQ SCH (21:06)
[2021-06-30] MEDS: CHOLECALCIFEROL 1,000 UNIT TABLET PO SCH (23:00)
[2021-06-30] MEDS: DOXEPIN HCL 6 MG HOMEMEDPO SCH (23:00)
[2021-06-30 23:35] VITALS: BP_SYST 137; BP_DIAS 74; BP_DIAS 77
[2021-07-01] MEDS: CHOLECALCIFEROL 1,000 UNIT TABLET PO SCH ×2 (00:18→20:03)
[2021-07-01] MEDS: ALPRazolam 1MG TAB PO PRN ×2 (00:28→20:03)
[2021-07-01 04:00] VITALS: BP 114/68
[2021-07-01] MEDS: SODIUM CHLORIDE 0.9% 1,000 ML IV SCH ×3 (04:24→19:30)
[2021-07-01 04:57] LABS: BASOPHILS % (AUTO) 0 % (0-1); EOSINOPHILS % (AUTO) 5 % (1-7); LYMPHOCYTES % (AUTO) 18 % (22-44); MEAN CORPUSCULAR HEMOGLOBIN 33.2 pg (27.5-34.5); MEAN CORPUSCULAR HGB CONC 33.4 g/dL (33.2-36.2); MEAN PLATELET VOLUME 8.3 fL (7.4-10.4); MONOCYTES % (AUTO) 11 % (2-9); NEUTROPHILS % (AUTO) 65 % (42-75); PLATELET COUNT 301 x10^3/uL (130-400); RED BLOOD COUNT 3.41 x10^6/uL (4.38-5.82); RED CELL DISTRIBUTION WIDTH 16.8 % (9.4-14.8)
[2021-07-01 04:59] LABS: ANION GAP 4 mmol/L (5-15); CALCIUM 7.8 mg/dL (8.5-10.1); CHLORIDE 108 mmol/L (98-107)
[2021-07-01] MEDS: HEPARIN 5,000 UNITS/ML, 1ML SQ SCH ×3 (05:43→20:03)
[2021-07-01 08:01] VITALS: BP 110/67
[2021-07-01] MEDS: FOLIC ACID 1 MG TABLET PO SCH (09:00)
[2021-07-01] MEDS: ATORVASTATIN 40 MG TABLET PO SCH (09:00)
[2021-07-01] MEDS: FENOFIBRATE 145 MG TABLET PO SCH (09:00)
[2021-07-01] MEDS: ASCORBIC ACID 500 MG TABLET PO SCH (09:00)
[2021-07-01 11:10] LABS: CLOSTRIDIUM DIFFICILE TOXIN POSITIVE (Negative)
[2021-07-01 11:12] LABS: CLOSTRIDIUM DIFFICILE ANTIGEN POSITIVE
[2021-07-01 13:08] VITALS: BP 137/75
[2021-07-01] MEDS: VANCOMYCIN 50 MG/ML ORAL SUSP PO SCH ×2 (13:52→20:03)
[2021-07-01 19:38] VITALS: BP 150/75
[2021-07-01] MEDS: MELATONIN 5 MG TABLET PO PRN (20:03)
[2021-07-01] MEDS: DOXEPIN HCL 6 MG HOMEMEDPO SCH (20:06)
[2021-07-02 01:07] VITALS: BP 147/77
[2021-07-02] MEDS: VANCOMYCIN 50 MG/ML ORAL SUSP PO SCH ×4 (01:23→17:39)
[2021-07-02] MEDS: SODIUM CHLORIDE 0.9% 1,000 ML IV SCH ×2 (03:39→19:30)
[2021-07-02] MEDS: HEPARIN 5,000 UNITS/ML, 1ML SQ SCH ×3 (03:39→20:36)
[2021-07-02] MEDS ORDERED: ONDANSETRON 2MG/ML, 2ML ONE (03:51)
[2021-07-02 03:55] VITALS: BP 155/80
[2021-07-02] MEDS: ONDANSETRON 2MG/ML, 2ML IVPush PRN ×4 (03:57→22:10)
[2021-07-02 06:28] LABS: BASOPHILS % (AUTO) 0 % (0-1); EOSINOPHILS % (AUTO) 1 % (1-7); LYMPHOCYTES % (AUTO) 7 % (22-44); MEAN CORPUSCULAR HEMOGLOBIN 32.9 pg (27.5-34.5); MEAN PLATELET VOLUME 8.5 fL (7.4-10.4); MONOCYTES % (AUTO) 7 % (2-9); NEUTROPHILS % (AUTO) 84 % (42-75); PLATELET COUNT 355 x10^3/uL (130-400); RED BLOOD COUNT 3.97 x10^6/uL (4.38-5.82); RED CELL DISTRIBUTION WIDTH 17.1 % (9.4-14.8)
[2021-07-02 06:31] LABS: ANION GAP 5 mmol/L (5-15); CALCIUM 8.5 mg/dL (8.5-10.1); CHLORIDE 106 mmol/L (98-107)
[2021-07-02 06:33] LABS: CREATININE 1.11 mg/dL (0.7-1.3)
[2021-07-02 07:36] VITALS: BP 149/75
[2021-07-02] MEDS: FENOFIBRATE 145 MG TABLET PO SCH (08:12)
[2021-07-02] MEDS: ATORVASTATIN 40 MG TABLET PO SCH (08:12)
[2021-07-02] MEDS: HYDROCHLOROTHIAZIDE 25 MG TABLET PO SCH (08:12)
[2021-07-02] MEDS: AMLODIPINE 5 MG TABLET PO SCH (08:12)
[2021-07-02] MEDS: FOLIC ACID 1 MG TABLET PO SCH (08:12)
[2021-07-02] MEDS: ASCORBIC ACID 500 MG TABLET PO SCH (08:12)
[2021-07-02 13:14] VITALS: BP 152/79
[2021-07-02] MEDS ORDERED: ALPRazolam 1MG TAB PO PRN (14:30)
[2021-07-02] MEDS: METRONIDAZOLE PMX 500MG/100ML 100 ML IV SCH ×2 (14:32→22:10)
[2021-07-02] MEDS: ACETAMINOPHEN 325 MG TABLET PO PRN ×2 (16:11→20:35)
[2021-07-02] MEDS: VANCOMYCIN 500 MG PR SCH ×2 (17:30→23:41)
[2021-07-02 18:46] VITALS: BP 155/72
[2021-07-02] MEDS ORDERED: SODIUM CHLORIDE 0.9% 1,000 ML IV SCH (19:30)
[2021-07-02] MEDS: CHOLECALCIFEROL 1,000 UNIT TABLET PO SCH (20:35)
[2021-07-02] MEDS: DOXEPIN HCL 6 MG HOMEMEDPO SCH (20:38)
[2021-07-02] MEDS: MELATONIN 5 MG TABLET PO PRN (20:39)
[2021-07-02] MEDS ORDERED: DOXEPIN 10 MG CAPSULE PO SCH (21:00)
[2021-07-02] MEDS: GUAIFENESIN/DM 100-10MG, 5ML UDC PO PRN (22:10)
[2021-07-02 23:51] VITALS: BP 130/72
[2021-07-03] MEDS: VANCOMYCIN 50 MG/ML ORAL SUSP PO SCH ×4 (01:55→20:41)
[2021-07-03] MEDS: SODIUM CHLORIDE 0.9% 1,000 ML IV SCH ×2 (05:30→20:40)
[2021-07-03] MEDS: VANCOMYCIN 500 MG PR SCH ×4 (05:33→23:42)
[2021-07-03] MEDS: HEPARIN 5,000 UNITS/ML, 1ML SQ SCH ×3 (05:33→20:40)
[2021-07-03] MEDS: GUAIFENESIN/DM 100-10MG, 5ML UDC PO PRN ×3 (05:33→20:49)
[2021-07-03] MEDS: METRONIDAZOLE PMX 500MG/100ML 100 ML IV SCH ×3 (05:48→22:13)
[2021-07-03 06:34] VITALS: BP 143/75
[2021-07-03 07:03] LABS: BASOPHILS % (AUTO) 0 % (0-1); EOSINOPHILS % (AUTO) 0 % (1-7); LYMPHOCYTES % (AUTO) 5 % (22-44); MEAN CORPUSCULAR HEMOGLOBIN 32.6 pg (27.5-34.5); MEAN CORPUSCULAR HGB CONC 33.4 g/dL (33.2-36.2); MEAN PLATELET VOLUME 7.6 fL (7.4-10.4); MONOCYTES % (AUTO) 7 % (2-9); NEUTROPHILS % (AUTO) 88 % (42-75); PLATELET COUNT 318 x10^3/uL (130-400); RED BLOOD COUNT 3.77 x10^6/uL (4.38-5.82); RED CELL DISTRIBUTION WIDTH 16.5 % (9.4-14.8)
[2021-07-03 07:07] LABS: ALANINE AMINOTRANSFERASE 11 U/L (12-78); ALBUMIN 2.3 g/dL (3.4-5.0); ANION GAP 6 mmol/L (5-15); CALCIUM 7.9 mg/dL (8.5-10.1); CHLORIDE 105 mmol/L (98-107); CREATININE 1.01 mg/dL (0.7-1.3)
[2021-07-03 07:09] LABS: ALKALINE PHOSPHATASE 67 U/L (45-117); BILIRUBIN,TOTAL 0.6 mg/dL (0.2-1.0); TOTAL PROTEIN 6.2 g/dL (6.4-8.2)
[2021-07-03] MEDS: ASCORBIC ACID 500 MG TABLET PO SCH (07:53)
[2021-07-03] MEDS: AMLODIPINE 5 MG TABLET PO SCH (07:53)
[2021-07-03] MEDS: HYDROCHLOROTHIAZIDE 25 MG TABLET PO SCH (07:54)
[2021-07-03] MEDS: FENOFIBRATE 145 MG TABLET PO SCH (07:54)
[2021-07-03] MEDS: FOLIC ACID 1 MG TABLET PO SCH (07:58)
[2021-07-03] MEDS ORDERED: POTASSIUM CHLORIDE 40 MEQ in SODIUM CHLORIDE 0.9% 500 ML IV ONE (09:00)
[2021-07-03 12:23] VITALS: BP 143/77
[2021-07-03] MEDS: FAMOTIDINE 20 MG TABLET PO SCH ×2 (16:36→20:41)
[2021-07-03 19:31] VITALS: BP 136/76
[2021-07-03] MEDS: DOXEPIN HCL 6 MG HOMEMEDPO SCH (20:42)
[2021-07-03] MEDS: ATORVASTATIN 40 MG TABLET PO SCH (20:44)
[2021-07-03] MEDS: CHOLECALCIFEROL 1,000 UNIT TABLET PO SCH (20:46)
[2021-07-04 01:13] VITALS: BP 153/84
[2021-07-04] MEDS: VANCOMYCIN 50 MG/ML ORAL SUSP PO SCH ×4 (01:48→20:02)
[2021-07-04] MEDS: HEPARIN 5,000 UNITS/ML, 1ML SQ SCH ×3 (04:09→20:02)
[2021-07-04] MEDS: SODIUM CHLORIDE 0.9% 1,000 ML IV SCH (04:09)
[2021-07-04 05:20] LABS: CHLORIDE 104 mmol/L (98-107)
[2021-07-04 05:25] LABS: BASOPHILS % (AUTO) 0 % (0-1); EOSINOPHILS % (AUTO) 0 % (1-7); LYMPHOCYTES % (AUTO) 12 % (22-44); MEAN CORPUSCULAR HEMOGLOBIN 32.4 pg (27.5-34.5); MEAN CORPUSCULAR HGB CONC 32.8 g/dL (33.2-36.2); MEAN PLATELET VOLUME 8.4 fL (7.4-10.4); MONOCYTES % (AUTO) 12 % (2-9); NEUTROPHILS % (AUTO) 75 % (42-75); PLATELET COUNT 328 x10^3/uL (130-400); RED BLOOD COUNT 3.62 x10^6/uL (4.38-5.82); RED CELL DISTRIBUTION WIDTH 16.5 % (9.4-14.8)
[2021-07-04 05:29] LABS: ANION GAP 6 mmol/L (5-15); CALCIUM 7.8 mg/dL (8.5-10.1)
[2021-07-04] MEDS: VANCOMYCIN 500 MG PR SCH ×4 (06:16→23:25)
[2021-07-04] MEDS: METRONIDAZOLE PMX 500MG/100ML 100 ML IV SCH ×3 (06:16→21:53)
[2021-07-04] MEDS: NS + 40MEQ KCL 1,000 ML IV SCH ×2 (06:47→20:02)
[2021-07-04 07:06] VITALS: BP 138/74
[2021-07-04] MEDS: HYDROCHLOROTHIAZIDE 25 MG TABLET PO SCH (07:53)
[2021-07-04] MEDS: FOLIC ACID 1 MG TABLET PO SCH (07:53)
[2021-07-04] MEDS: FAMOTIDINE 20 MG TABLET PO SCH ×2 (07:54→20:02)
[2021-07-04] MEDS: FENOFIBRATE 145 MG TABLET PO SCH (07:54)
[2021-07-04] MEDS: AMLODIPINE 5 MG TABLET PO SCH (07:54)
[2021-07-04] MEDS: GUAIFENESIN/DM 100-10MG, 5ML UDC PO PRN (07:54)
[2021-07-04] MEDS: ASCORBIC ACID 500 MG TABLET PO SCH (07:54)
[2021-07-04] MEDS ORDERED: MAGNESIUM SULFATE PMX 2GM/50ML 50 ML IV ONE (10:30)
[2021-07-04] MEDS: BENZONATATE 100 MG CAPSULE PO SCH ×3 (11:43→20:02)
[2021-07-04 12:13] VITALS: BP 137/77
[2021-07-04 19:59] VITALS: BP 147/77
[2021-07-04] MEDS: CHOLECALCIFEROL 1,000 UNIT TABLET PO SCH (20:02)
[2021-07-04] MEDS: DOXEPIN HCL 6 MG HOMEMEDPO SCH (20:02)
[2021-07-04] MEDS: ATORVASTATIN 40 MG TABLET PO SCH (20:02)
[2021-07-05] MEDS: VANCOMYCIN 50 MG/ML ORAL SUSP PO SCH ×3 (01:34→14:23)
[2021-07-05 01:35] VITALS: BP 128/68
[2021-07-05] MEDS: HEPARIN 5,000 UNITS/ML, 1ML SQ SCH ×2 (04:33→12:12)
[2021-07-05] MEDS: NS + 40MEQ KCL 1,000 ML IV SCH (04:33)
[2021-07-05] MEDS: VANCOMYCIN 500 MG PR SCH ×2 (05:44→10:03)
[2021-07-05] MEDS: METRONIDAZOLE PMX 500MG/100ML 100 ML IV SCH ×2 (05:45→14:23)
[2021-07-05 06:51] LABS: ALANINE AMINOTRANSFERASE 15 U/L (12-78); ALBUMIN 2.2 g/dL (3.4-5.0); ANION GAP 2 mmol/L (5-15); CHLORIDE 105 mmol/L (98-107)
[2021-07-05 06:53] LABS: BASOPHILS % (AUTO) 0 % (0-1); EOSINOPHILS % (AUTO) 2 % (1-7); LYMPHOCYTES % (AUTO) 12 % (22-44); MEAN CORPUSCULAR HEMOGLOBIN 32.3 pg (27.5-34.5); MEAN CORPUSCULAR HGB CONC 32.9 g/dL (33.2-36.2); MEAN PLATELET VOLUME 8.2 fL (7.4-10.4); MONOCYTES % (AUTO) 13 % (2-9); NEUTROPHILS % (AUTO) 73 % (42-75); PLATELET COUNT 353 x10^3/uL (130-400); RED BLOOD COUNT 3.68 x10^6/uL (4.38-5.82); RED CELL DISTRIBUTION WIDTH 16.6 % (9.4-14.8)
[2021-07-05 06:54] LABS: ALKALINE PHOSPHATASE 60 U/L (45-117); BILIRUBIN,TOTAL 0.4 mg/dL (0.2-1.0); CREATININE 0.92 mg/dL (0.7-1.3); TOTAL PROTEIN 5.7 g/dL (6.4-8.2)
[2021-07-05 08:00] VITALS: BP 159/69
[2021-07-05] MEDS: HYDROCHLOROTHIAZIDE 25 MG TABLET PO SCH (08:21)
[2021-07-05] MEDS: AMLODIPINE 5 MG TABLET PO SCH (08:21)
[2021-07-05] MEDS: FENOFIBRATE 145 MG TABLET PO SCH (08:21)
[2021-07-05] MEDS: FAMOTIDINE 20 MG TABLET PO SCH (08:21)
[2021-07-05] MEDS: FOLIC ACID 1 MG TABLET PO SCH (08:21)
[2021-07-05] MEDS: ASCORBIC ACID 500 MG TABLET PO SCH (08:21)
[2021-07-05] MEDS: BENZONATATE 100 MG CAPSULE PO SCH ×2 (08:21→16:04)
[2021-07-05] MEDS ORDERED: POTASSIUM CHLORIDE 40 MEQ in SODIUM CHLORIDE 0.9% 500 ML IV ONE (08:30)
[2021-07-05] MEDS ORDERED: MAGNESIUM SULFATE PMX 2GM/50ML 50 ML IV ONE (08:30)
[2021-07-05] MEDS ORDERED: VANC250C12 PO (13:45)
[2021-07-05] MEDS ORDERED: METR500T PO (13:45)
[2021-07-05 14:16] VITALS: BP 132/81
== END 2021-07-05 17:25 | disposition home health service (06) | DRG 371 ==
LOC: ED 14:32 → EDIP 17:58 → 4NW 19:32
PROVIDERS: ADMIT Hospitalist; ATTEND Family Medicine
DX: A04.72 Enterocolitis due to Clostridium difficile, not specified as recurrent (principal); N17.0 Acute kidney failure with tubular necrosis; C34.90 Malignant neoplasm of unspecified part of unspecified bronchus or lung; K56.7 Ileus, unspecified; J96.11 Chronic respiratory failure with hypoxia; I13.0 Hypertensive heart and chronic kidney disease with heart failure and stage 1 through stage 4 chronic kidney disease, or unspecified chronic kidney disease; N47.1 Phimosis; E78.00 Pure hypercholesterolemia, unspecified; E86.0 Dehydration; N40.0 Benign prostatic hyperplasia without lower urinary tract symptoms; N18.30 Chronic kidney disease, stage 3 unspecified; I25.10 Atherosclerotic heart disease of native coronary artery without angina pectoris; E78.5 Hyperlipidemia, unspecified; G47.00 Insomnia, unspecified; J44.9 Chronic obstructive pulmonary disease, unspecified; D64.9 Anemia, unspecified; E83.42 Hypomagnesemia; Z66 Do not resuscitate; I50.9 Heart failure, unspecified; Z86.14 Personal history of Methicillin resistant Staphylococcus aureus infection; Z82.5 Family history of asthma and other chronic lower respiratory diseases; Z88.0 Allergy status to penicillin; Z87.440 Personal history of urinary (tract) infections; I25.2 Old myocardial infarction; Z87.01 Personal history of pneumonia (recurrent); Z95.1 Presence of aortocoronary bypass graft; Z90.49 Acquired absence of other specified parts of digestive tract; Z87.891 Personal history of nicotine dependence; Z82.49 Family history of ischemic heart disease and other diseases of the circulatory system; Z86.19 Personal history of other infectious and parasitic diseases; Z99.81 Dependence on supplemental oxygen
CPT/HCPCS: 36415; 74018; 76770; 80048; 80053; 81001; 83605; 83735; 85025; 87040; 87046; 87324; 87427; 89055; 96360; 96361; G0378; J1644; J2405; J3370; J3480; J3475; J7030; J7040

== ENCOUNTER 2021-07-01 08:11 | Outpatient (CLI) | payer MEDICARE ==
[~2021-07-01 08:11] MED LIST changes: +AMLO-150 PO; +BREO ELLIPTA; +INCRUSE ELLIPTA; +METO-93 PO; +TAMSULOSIN PO
[2021-07-05] MEDS ORDERED: METR500T PO ×2 (13:45)
[2021-07-05] MEDS ORDERED: VANC250C12 PO ×2 (13:45)
== END 2021-07-01 23:59 | disposition home or self-care (01) ==
LOC: ROC 08:11
PROVIDERS: ATTEND Radiology Radiation Oncology
DX: Z02.9 Encounter for administrative examinations, unspecified (principal)

== ENCOUNTER 2021-07-22 08:07 | Outpatient (CLI) | payer MEDICARE | END 2021-07-22 23:59 | disposition home or self-care (01) | LOC: ROC 08:07 | PROVIDERS: ATTEND Radiology Radiation Oncology | DX: Z08 Encounter for follow-up examination after completed treatment for malignant neoplasm (principal); Z85.118 Personal history of other malignant neoplasm of bronchus and lung; J96.11 Chronic respiratory failure with hypoxia; I25.10 Atherosclerotic heart disease of native coronary artery without angina pectoris; K21.9 Gastro-esophageal reflux disease without esophagitis; J44.9 Chronic obstructive pulmonary disease, unspecified; E86.0 Dehydration; E78.5 Hyperlipidemia, unspecified; I25.2 Old myocardial infarction; I13.0 Hypertensive heart and chronic kidney disease with heart failure and stage 1 through stage 4 chronic kidney disease, or unspecified chronic kidney disease; N18.30 Chronic kidney disease, stage 3 unspecified; I50.9 Heart failure, unspecified; Z79.899 Other long term (current) drug therapy; Z87.891 Personal history of nicotine dependence; Z95.1 Presence of aortocoronary bypass graft ==